=== PATIENT | male | born 1955 ===

== ENCOUNTER 2024-12-07 09:11 | Outpatient (REF) | payer BC, SELFPAY ==
[2024-12-07 11:46] LABS: Appearance Urine Clear; Color Urine Yellow; Glucose Urine UA Negative (Negative); Leukocyte Esterase Urine Trace (Negative); Nitrite Urine Negative (Negative); PH 5.5 (5.0-9.0); UMIC TRIGGER UACC YES; Urine Blood Negative (Negative); Urine Ketones Negative (Negative); Urine Protein Negative (Neg-Trace)
[2024-12-07 11:48] LABS: Bacteria Urine None Seen (None Seen); Hyaline Casts Urine 0-2 /LPF (0-2); RBC Urine 0-2 /HPF (0-2); Squamous Epithelial Cell Urine 0-2 /HPF (0-2); UACC Culture Trigger YES
== END 2024-12-07 09:12 | disposition home or self-care (01) ==
LOC: HO.LNP 09:11
PROVIDERS: PCP Physician Assistant; Visit Provider Physician Assistant
DX: Z76.89 Persons encountering health services in other specified circumstances (principal); C67.9 Malignant neoplasm of bladder, unspecified; C61 Malignant neoplasm of prostate; K59.09 Other constipation; E78.5 Hyperlipidemia, unspecified; R82.90 Unspecified abnormal findings in urine; Z13.220 Encounter for screening for lipoid disorders; K86.2 Cyst of pancreas; R91.8 Other nonspecific abnormal finding of lung field; E27.8 Other specified disorders of adrenal gland; J44.9 Chronic obstructive pulmonary disease, unspecified; F17.210 Nicotine dependence, cigarettes, uncomplicated
CPT/HCPCS: 81001; 87086; 96127; 96160

== ENCOUNTER 2024-12-07 09:11 | Outpatient (AMB) | payer BC, SELFPAY ==
--- NOTE | 2024-12-07 09:13 | MHC.PC.OV ---
Vital Signs 12/07/24 09:20 Height 5 ft 10.08 in Weight 206 lb 4 oz BMI 29.5 BP 136/72 Blood Pressure Location Rt brachial Position Sitting Respiration 14 Pulse 84 Pulse Source Pulse Oximeter Temp 98.6 F Temp Source Oral Pulse Oximetry (%) 96 Oxygen Delivery Method Room Air Intake Visit Reasons: need new pcp for medication/ pcp retired Allergies ciprofloxacin Allergy (Verified 12/07/24 09:15) weight loss Medication List - Last Reconciled 12/07/24 by Opal Alarcon PA-C albuterol sulfate 90 mcg/actuation inhalation ascorbate calcium (vitamin C) . budesonide-formoterol 160-4.5 mcg/actuation (Breyna) inhalation docusate sodium 100 mg PO BID gabapentin 300 mg PO TID multivitamin 1 tab PO DAILY omeprazole 20 mg PO DAILY Tobacco use date assessed: 12/07/24 Fall risk assessment: No Falls in past year Last assessed Fall Risk: 12/07/24 Dental Screening Dental Screen Date: 12/07/24 Did you have a dental visit in the last 12 months?: Yes Did you have a dental problem in the last 6 months where you did not have access to dental care?: No Was dental information given to patient?: Patient has dentist HPI need new pcp for medication/ pcp retired HPI Details Patient is a 69-year-old male who presents today to [facility] care. He is transferring from [facility]. 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 He used to follow with Dr. Adrian but does not want to see pulm anymore. He follows with the ldct program at [facility]. He states he just had a CT a few months ago which showed the pancreatic cysts in the the adrenal incidentaloma. He states that he will now be booked for a repeat CT next year. No recent COPD exacerbations. Continues to smoke cigarettes and not interested in quitting. CV: Blood pressure today in the office is 136/72. Saw his last PCP in August and was recommended to have a nuclear stress test given his atypical chest pain however patient tells me today that he will not be doing any stress test. He is not interested in working this up. He is aware of his risk factors and states that he does not care. He has risk factors including untreated hyperlipidemia, tobacco use and coronary artery calcifications. He was supposed to be taking Crestor but d/c'd because he states that he does not want to put any medication in him that could affect his liver as he likes to drink alcohol every night. He is not interested in any statin therapy at this point and states that he is aware of all these risks. He understands the increased risk of a heart attack, stroke and early . Uro: [facility] (Dr. Moore), states in 2014 dx with prostate then had total prostatectomy, in 2018 states he had reoccurrence, in 2020 then dx with bladder ca. He states he has multiple surgeries and radiation. He does complain today of some cloudy urine. It has been on and off for the last few days. No malorie hematuria. Denies any dysuria, fever, chills or flank pain. No abdominal pain. 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 He states that he went this morning for labs and saw [facility] endocrinology yesterday. He is very frustrated with the medical system and that people change jobs. In fact, a large part of today's discussion is how frustrated he is that he has to be here to have a PCP and change practices. He states that he is pretty much here just so he has someone on paper listed as a PCP and in case he needs any refills on the omeprazole her gabapentin that he intermittently takes. GI: He was also noted to have possible IPMN 0.5 cm in the pancreas with advised to repeat MRI without contrast in 2 years. He has chronic constipation and states that this happened starting in 2013 after he had his total prostatectomy. He was supposed to follow with GI but does not want to. Msk: has chronic back pain and uses gabapentin as needed. Psych: Does not follow with behavioral health or wish to. No SI/HI. Not on any medications. Colonoscopy: reports double endoscopy approx 2021, due in 2026, states he had polyps and severe diverticulosis. [facility] Surgical History (Updated 12/07/24 @ 08:53 by Jennifer Iglesias CMA) H/O endoscopy H/O colonoscopy Family History (Updated 12/07/24 @ 08:54 by Jennifer Iglesias CMA) Father Cancer of colon Sister Cancer Social History Housing: House Alcohol intake: current Patient Tobacco Use Status: Current everyday Tobacco user Cigarettes Per Day: 8 Years Smoked: 50 e-Cigarette/Vaping Use: Never Used Second Hand Smoke Exposure: No Substance Use Type: Marijuana service: No Current occupational status: retired Cognitive needs: No Hearing needs: No Vision needs: No Questionnaire PHQ-9 Over the last 2 weeks, how often have you been bothered by any of the following problems? 1. Little interest or pleasure in doing things: several days 2. Feeling down, depressed, or hopeless: not at all 3. Trouble falling or staying asleep, or sleeping too much: several days 4. Feeling tired or having little energy: several days 5. Poor appetite or overeating: not at all 6. Feeling bad about yourself - or that you are a failure or have let yourself or your family down: not at all 7. Trouble concentrating on things, such as reading the newspaper or watching television: not at all 8. Moving or speaking so slowly that other people could have noticed. Or the opposite - being so fidgety or restless that you have been moving around a lot more than usual: not at all 9. Thoughts that you would be better off or of hurting yourself in some way: not at all Total score: 3 Depression Screening Interpretation: Negative Depression Screening Done: Yes 07640 - PHQ-9 Billing: Yes Source: Developed by Drs. Dimitrios Steen, Shameka Swartz, Anastacio Ponce and colleagues, with an educational sumanth from [facility]. Thrive Questionnaire Date Thrive assessed: 12/07/24 I am a: Patient What is your living situation today?: I have a steady place to live THRIVE Score: 0 AUDIT C Alcohol Use Questionnaire (AUDIT-C) 2. How many drinks containing alcohol do you have on a typical day when you are drinking?: 5 or 6 Total Score: 2 ACT Questionnaire In the past 4 weeks, how much of the time did your asthma keep you from getting as much done at work, school or at home?: Some of the time During the past 4 weeks, how often have you had shortness of breath?: 1-2 times a week (only on exertion, can not say how often) During the past 4 weeks, how often did your asthma symptoms wake you up at night or earlier than usual in the morning?: Once or twice per week During the past 4 weeks, how often have you had to use your rescue inhaler or nebulizer medication?: 2-3 times a week (once a day ) How would you rate your asthma control during the past 4 weeks?: Somewhat controlled Score: 17 Physical exam (Primary Care) Depression Screening Interpretation: Negative Thrive Assessment: Date of Thrive Assessment Date Thrive assessed 12/07/24 12/07/24 09:12 Const Orientation/consciousness: patient oriented x3 HENMT Ears: hearing grossly normal bilaterally Neck Thyroid: Thyroid normal Lymphatic: no lymphadenopathy noted Resp Auscultation: clear to auscultation bilaterally Cardio Rate: regular rate Rhythm: regular rhythm Heart sounds: S1 normal heart sound present and S2 normal heart sound present GI Inspection: Yes normal to inspection Palpation (GI): Soft to palpation and Other GI palpation findings present (nontender, no cva tenderness) Auscultation: normoactive bowel sounds Rectal Exam - Male: Yes deferred Skin General skin exam: no rashes or lesions noted Neuro General: patient oriented x3, gait normal and no focal motor deficits Coding Level of Care Code New Pt Level 4 (37796) Complex EM visit Add On G2211 Diagnoses Bladder cancer C67.9 Prostate CA C61 Cloudy urine R82.90 Constipation, chronic K59.09 HLD (hyperlipidemia) E78.5 Pancreatic cyst K86.2 Lung nodules R91.8 Smoker F17.200 Adrenal incidentaloma E27.8 COPD (chronic obstructive pulmonary disease) J44.9 Additional Codes PHQ-9 - 52346 - PHQ-9 Billing: Yes ([id number]) Assessment & Plan Assessment & Plan (1) Bladder cancer: Code(s): C67.9 - Malignant neoplasm of bladder, unspecified Category: Medical Plan: Currently following with Urology. Has an appointment in 3 months. (2) Prostate CA: Code(s): C61 - Malignant neoplasm of prostate Category: Medical Plan: As above. We will get records. (3) Cloudy urine: Code(s): R82.90 - Unspecified abnormal findings in urine Category: Medical Plan: UA and culture ordered today (4) Constipation, chronic: Code(s): K59.09 - Other constipation Category: Medical Plan: He will use Colace as needed (5) HLD (hyperlipidemia): Code(s): E78.5 - Hyperlipidemia, unspecified Category: Medical Plan: Refuses any statins. Does not want me to check his labs today. (6) Pancreatic cyst: Code(s): K86.2 - Cyst of pancreas Category: Medical Plan: We will need repeat MRI of the abdomen in 2026 (7) Lung nodules: Code(s): R91.8 - Other nonspecific abnormal finding of lung field Category: Medical Plan: Following with the low-dose CAT scanning program at [facility]. (8) Smoker: Code(s): F17.200 - Nicotine dependence, unspecified, uncomplicated Category: Medical Plan: Not interested in quitting (9) Adrenal incidentaloma: Code(s): E27.8 - Other specified disorders of adrenal gland Category: Medical Plan: Saw [facility] endocrinology yesterday and had hormone labs drawn this morning. (10) COPD (chronic obstructive pulmonary disease): Code(s): J44.9 - Chronic obstructive pulmonary disease, unspecified Category: Medical Plan: Reports stable. No recent exacerbations. Orders: Orders UA CC w/rflx Micro + Cult Today C61 - Malignant neoplasm of prostate, C67.9 - Malignant neoplasm of bladder, unspecified, R82.90 - Unspecified abnormal findings in urine, Z13.220 - Encounter for screening for lipoid disorders
[2024-12-07 09:20] VITALS: BP 136/72; PULSE 84; RESP 14; TEMP 37; O2SAT 96; BMI 29.5
--- OUTSIDE RECORDS SUMMARY | 2024-12-07 09:50 | XMS_ITS | Clinical Summary ---
Author Organization [facility] Address [address] [place] [address] Care Team Providers Care [place] Actor Name Role Phone Yaw Coronado MD Primary Care Provider [phone] Allergies Active Allergy Reactions Criticality Noted Date Comments Ciprofloxacin Nausea And Vomiting Medium 03/22/2018 Nausea/emesis of bile after cipro Medications Medication Sig Dispensed Refills Start Date End Date Status Calcium Citrate-Vitamin D (CALCIUM CITRATE + D3) 200-250 MG-UNIT TABS Take 1 tablet by mouth daily. 0 Active psyllium (METAMUCIL) 0.52 g capsule Take 2 capsules by mouth daily. 0 Active docusate sodium (COLACE) 100 MG capsule Take 100 mg by mouth 2 (two) times a day. 0 Active gabapentin (NEURONTIN) 300 MG capsule Take 2 capsules (600 mg total) by mouth 2 (two) times a day. 60 capsule 1 11/14/2019 Active Sennosides (SENNA) 8.6 MG CAPS Take 1 tablet by mouth daily. 30 each 1 11/14/2019 Active lactulose (CEPHULAC) 20 GM/30ML solution Take 30 mL (20 g total) by mouth 2 (two) times a day as needed (constipation.). 240 mL 1 11/21/2019 Active albuterol (PROVENTIL HFA;VENTOLIN HFA) 108 (90 Base) MCG/ACT inhaler Inhale 2 puffs into the lungs every 6 (six) hours as needed for wheezing. 1 Inhaler 1 12/19/2019 Active budesonide-formote rol (SYMBICORT) 160-4.5 MCG/ACT inhaler Inhale 2 inhalations into the lungs 2 (two) times a day. 1 Inhaler 1 12/21/2019 Active oxybutynin (DITROPAN-XL) 5 MG 24 hr tablet TAKE 1 TABLET (5 MG TOTAL) BY MOUTH ONCE DAILY NEEDED 30 tablet 0 02/26/2020 Active Active Problems Problem Noted Date Diagnosed Date Malignant neoplasm of trigone of urinary bladder 11/14/2019 Gross hematuria 09/26/2019 Bladder tumor 09/26/2019 Prostate cancer 11/30/2017 Family History Medical History Relation Name Comments Cancer Father Cancer Mother Heart attack Mother Relation Name Status Comments Father Mother Alive Social History Tobacco Use Types Packs/Day Years Used Date Smoking Tobacco: Some Days Cigarettes 0.3 40 Smokeless Tobacco: Never Alcohol Use Standard Drinks/Week Comments No 0 (1 standard drink = 0.6 oz pur e alcohol) Sex and Gender Information Value Date Recorded Sex Assigned at Not on file Gender Identity Not on file Sexual Orientation Not on file Last Filed Vital Signs Vital Sign Reading Time Taken Comments Blood Pressure 152/78 01/30/2020 2:30 PM EDT Pulse 94 01/30/2020 2:30 PM EDT Temperature 36.4 ??C (97.6 ??F) 01/30/2020 2:30 PM ED T Respiratory Rate - - Oxygen Saturation 100% 12/12/2019 2:08 PM EDT Inhaled Oxygen Concentration - - Weight 90.2 kg (198 lb 12.8 oz) 01/30/2020 2:30 PM EDT Height 177.8 cm (5' 10 ) 01/30/2020 2:30 PM EDT Body Mass Index 28.52 01/30/2020 2:30 PM EDT Plan of Treatment Health Maintenance Due Date Last Done Comments Hepatitis C Screening 1955 COVID-19 Vaccine (#1) 12/03/1959 Pneumococcal Vaccine (1 of 2 - PCV) 1960 Depression Screening 1966 BMI Counseling 1972 Preventative Health Evaluation 1972 Tobacco Cessation Counseling 1972 DTap / Tdap / Td (1 - Tdap) 1973 Shingrix-Zoster Vaccine (1 of 2) 1973 Colon Cancer Screening (Colonoscopy) 12/03/1999 Abdominal Aortic Aneurysm (A AA) Screening 12/03/2019 Fall Risk Assessment 12/03/2019 Influenza Vaccine (Season Ended) 2025 RSV Adult > 60+ Yrs or Pregn ant (1 - 1-dose 75+ series) 2029 Hepatitis B Vaccines Aged Out No long er eligible based on patient's age to complete this topic RSV Ped < 20 months Aged Out No longe r eligible based on patient's age to complete this topic Care Teams [place] Relationship Specialty Start Date End Date Yaw Coronado MD PCP - General Internal Medicine 10/05/19
== END 2024-12-07 10:08 | disposition home or self-care (01) ==
LOC: HO.HMCFM 09:12
PROVIDERS: PCP Physician Assistant; Visit Provider Physician Assistant
DX: C67.9 Malignant neoplasm of bladder, unspecified (principal); C61 Malignant neoplasm of prostate; J44.9 Chronic obstructive pulmonary disease, unspecified; R82.90 Unspecified abnormal findings in urine; K59.09 Other constipation; E78.5 Hyperlipidemia, unspecified; K86.2 Cyst of pancreas; R91.8 Other nonspecific abnormal finding of lung field; F17.200 Nicotine dependence, unspecified, uncomplicated; E27.8 Other specified disorders of adrenal gland

== ENCOUNTER 2025-04-11 11:02 | Outpatient (AMB) | payer BC, SELFPAY ==
--- NOTE | 2025-04-11 11:05 | MHC.PC.OV ---
Vital Signs 04/11/25 11:07 Height 5 ft 10.08 in Weight 200 lb 8 oz BMI 28.7 BP 116/58 L Blood Pressure Location Rt brachial Position Sitting Respiration 14 Pulse 42 L Pulse Source Pulse Oximeter Temp 98.8 F Temp Source Oral Pulse Oximetry (%) 98 Oxygen Delivery Method Room Air Intake Visit Reasons: Surgery on 04/23 at [facility] Intake Note: Bladder biopsy. Production Tester Required: No Allergies ciprofloxacin Allergy (Verified 04/11/25 11:07) weight loss Tobacco use date assessed: 04/11/25 Fall risk assessment: No Falls in past year Last assessed Fall Risk: 04/11/25 Dental Screening Dental Screen Date: 12/07/24 HPI Surgery on 04/23 at [facility] Details Patient is a 69-year-old male who presents today for a preop. On 04/23 he is scheduled at [facility] for a bladder biopsy by Dr. Moore. This will be under sedation. . 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 He used to follow with Dr. Adrian but does not want to see pulm anymore. He follows with [place] [facility] [place]. He states he had a CT 2024 which showed the pancreatic cysts and a right adrenal incidentaloma. He states that he will now be booked for a repeat CT next year. No recent COPD exacerbations. Continues to smoke cigarettes and not interested in quitting. CV: Blood pressure today in the office is 116/58. He denies any chest pain, shortness on breath or dizziness. States that he could walk around the building or up a flight of stairs without difficulty. He often carries groceries long distances and has no issues. States that he feels healthy and fit and does not have any concerns. He has undergone this procedure many times and has never had any issues. He is aware of his risk factors and states that he does not care. He has risk factors including untreated hyperlipidemia, tobacco use and coronary artery calcifications. He was supposed to be taking Crestor but d/c'd because he states that he does not want to put any medication in him that could affect his liver as he likes to drink alcohol every night. He is not interested in any statin therapy at this point and states that he is aware of all these risks. He understands the increased risk of a heart attack, stroke and early . Uro: [facility] (Dr. [facility]), states in 2014 dx with prostate then had total prostatectomy, in 2018 states he had reoccurrence, in 2020 then dx with bladder ca. He states he has multiple surgeries and radiation. He states that he gets a biopsy every 6 months in his due for a biopsy. He states that he has never had an issue with this and has been getting them with sedation. No malorie hematuria. Denies any dysuria, fever, chills or flank pain. No abdominal pain. 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 He states that he went this morning for labs and saw [facility] endocrinology yesterday. He is very frustrated with the medical system and that people change jobs. In fact, a large part of today's discussion is how frustrated he is that he has to be here to have a PCP and change practices. He states that he is pretty much here just so he has someone on paper listed as a PCP and in case he needs any refills on the omeprazole her gabapentin that he intermittently takes. GI: He was also noted to have possible IPMN 0.5 cm in the pancreas with advised to repeat MRI without contrast in 2 years. He has chronic constipation and states that this happened starting in 2013 after he had his total prostatectomy. He was supposed to follow with GI but does not want to. Msk: has chronic back pain and uses gabapentin as needed. Psych: Does not follow with behavioral health or wish to. No SI/HI. Not on any medications. Colonoscopy: reports double endoscopy approx 2021, due in 2026, states he had polyps and severe diverticulosis. Of note, today we did have a contentious visit where he was frustrated with the healthcare system. At our last visit I spent significant time listening to his concerns about the healthcare system and today when I did suggest that I need to review his EKG with a physician he became very upset and states that he does not care about any of this. He was upset that he also was not a doctor Christy patient as his appointment got changed prior to seeing me and was upset that I was having him review his EKG. I did explain that I am not a physician. He was then yelling at me about this and about the health care system and that he went to the ER last week for tick bites and was upset that he had to wait 5 hours in the emergency room some start to finish and he was upset that he was 1 of 3 patients and that this is 1 of the big causes of collapse in the health care system . I did tell him that I did not appreciate his tone or being yelled at and neither does the staff. We discussed that if he is unable to come here and at least be respectful then he may wish to be seen by somebody else. He did ultimately apologize. PFSH Surgical History (Updated 12/07/24 @ 08:53 by Jennifer Iglesias CMA) H/O endoscopy H/O colonoscopy Family History (Updated 12/07/24 @ 08:54 by Jennifer Iglesias CMA) Father Cancer of colon Sister Cancer Social History (Updated 12/07/24 @ 09:36 by Jennifer Iglesias CMA) Housing: House Alcohol intake: current Patient Tobacco Use Status: Current everyday Tobacco user Cigarettes Per Day: 8 Years Smoked: 50 e-Cigarette/Vaping Use: Never Used Second Hand Smoke Exposure: No Substance Use Type: Marijuana service: No Current occupational status: retired Cognitive needs: No Hearing needs: No Vision needs: No Questionnaire Thrive Questionnaire Date Thrive assessed: 12/07/24 Within the past 12 months, did the food you bought not last and you didn't have the money to get more?: I choose not to answer this question Within the past 12 months, did you worry whether your food would run out before you got money to buy more?: I choose not to answer this question Do you have trouble paying for medicines?: No Do you have trouble getting transportation to medical appointments?: I choose not to answer this question Do you have trouble paying your heating and electricity bill?: No Do you have trouble taking care of your child, family member or friend?: No Do you have trouble with day-to-day activities such as bathing, preparing meals, shopping, managing finances, etc.?: I choose not to answer this question Are you currently unemployed and looking for a job?: No Are you interested in more education?: No Please select the resources that you would like help with: None Currently or been in a relationship where the following occur: No concerns reported THRIVE Score: 0 AUDIT C Alcohol Use Questionnaire (AUDIT-C) 1. How often do you have a drink containing alcohol?: Never 3. How often do you have six or more drinks on one occasion?: Never Total Score: 0 DESIREE-7 AMB Questionnaire DESIREE-7 Feeling nervous, anxious, or on edge: 0 = Not at all Not being able to stop or control worryin = Not at all Worrying too much about different things: 0 = Not at all Trouble relaxin = Not at all Being so restless that it is hard to sit still: 0 = Not at all Becoming easily annoyed or irritable: 0 = Not at all Feeling afraid as if something awful might happen: 0 = Not at all Total DESIREE-7 score (0-4 normal; 5-9 mild; 10-14 moderate; 15-21 severe): 0 Source: Developed by Drs. Dimitrios Steen, Shameka Swartz, Anastacio Ponce and colleagues, with an educational sumanth from [employer]. Physical exam (Primary Care) Vital Signs: Last Vital Signs Temp 98.8 F 04/11/25 11:07 Pulse 42 L 04/11/25 11:07 Resp 14 04/11/25 11:07 BP 116/58 L 04/11/25 11:07 Pulse Ox 98 04/11/25 11:07 Oxygen Delivery Method Room Air 04/11/25 11:07 BMI result Body Mass Index 28.7 Tobacco/Smoking Status: Tobacco use Status Tobacco use date assessed 04/11/25 04/11/25 11:08 Patient Tobacco Use Status Current everyday Tobacco 04/11/25 11:08 e-Cigarette/Vaping Use Never Used 04/11/25 11:08 Thrive Assessment: Date of Thrive Assessment Date Thrive assessed 12/07/24 04/11/25 11:08 Currently or been in a relationship where the following occur: No concerns reported Const Orientation/consciousness: patient oriented x3 HENMT Ears: hearing grossly normal bilaterally Neck Thyroid: Thyroid normal Lymphatic: no lymphadenopathy noted Resp Auscultation: clear to auscultation bilaterally Cardio Rate: regular rate Rhythm: regular rhythm Heart sounds: S1 normal heart sound present and S2 normal heart sound present GI Inspection: Yes normal to inspection Palpation (GI): Soft to palpation and Other GI palpation findings present (nontender, no cva tenderness) Auscultation: normoactive bowel sounds Rectal Exam - Male: Yes deferred Skin General skin exam: no rashes or lesions noted Neuro General: patient oriented x3, gait normal and no focal motor deficits Office Procedures EKG Details: EKG today in office is normal sinus rhythm with PAC noted and right bundle-branch block. EKG interpreted myself, Dr. Woodson and Dr. Harrison. Dr. Woodson and myself compared the previous EKG from [facility] and no significant change. [id number], Complete Results Reviewed Results Reviewed: Laboratory Tests 04/11/25 11:47 WBC 9.3 RBC 5.51 Hgb 16.2 Hct 51.3 Plt Count 331 Sodium 140 Potassium 5.2 H Chloride 105 Carbon Dioxide 29 Anion Gap 11 L BUN 14 Creatinine 1.01 Estimated GFR > 60 Random Glucose 104 Calcium 9.8 Total Bilirubin 0.7 AST 32 ALT 37 Alkaline Phosphatase 64 Total Protein 7.2 Albumin 4.6 Triglycerides 68 Cholesterol 167 LDL Cholesterol, Calc 116 H HDL Cholesterol 38 L TSH 0.84 Lyme Screen IgG & IgM <0.90 Coding Level of Care Code Est Pt Level 4 (39143) Complex EM visit Add On G2211 Diagnoses Pre-op exam Z01.818 Bladder cancer C67.9 HLD (hyperlipidemia) E78.5 COPD (chronic obstructive pulmonary disease) J44.9 Tick bite W57.XXXA CPT Codes EKG - CPT: 56816-[id number], Complete ([id number]) Assessment & Plan Assessment & Plan (1) Pre-op exam: Code(s): Z01.818 - Encounter for other preprocedural examination Category: Medical Plan: Patient is average risk for a low risk procedure. He is cleared for bladder biopsy Labs ordered today and reviewed. Potassium was mildly elevated. We will plan to repeat this this week. (2) Bladder cancer: Code(s): C67.9 - Malignant neoplasm of bladder, unspecified Category: Medical Plan: Continue following with Dr. Moore (3) HLD (hyperlipidemia): Code(s): E78.5 - Hyperlipidemia, unspecified Category: Medical Plan: We will check lipids (4) COPD (chronic obstructive pulmonary disease): Code(s): J44.9 - Chronic obstructive pulmonary disease, unspecified Category: Medical Plan: Stable. No exacerbations within the last year. (5) Tick bite: Code(s): W57.XXXA - Bitten or stung by nonvenomous insect and other nonvenomous arthropods, initial encounter Category: Medical Plan: We will check Lyme testing Orders: Orders Lipid Panel 04/11/25 C67.9 - Malignant neoplasm of bladder, unspecified, E78.5 - Hyperlipidemia, unspecified, J44.9 - Chronic obstructive pulmonary disease, unspecified, Z01.818 - Encounter for other preprocedural examination TSH reflex Free T4 04/11/25 C67.9 - Malignant neoplasm of bladder, unspecified, E78.5 - Hyperlipidemia, unspecified, J44.9 - Chronic obstructive pulmonary disease, unspecified, Z01.818 - Encounter for other preprocedural examination Lyme IgG/IgM w/reflex to WB 04/11/25 W57.XXXA - Bitten or stung by nonvenomous insect and other nonvenomous arthropods, initial encounter Comprehensive Met. Panel 04/11/25 C67.9 - Malignant neoplasm of bladder, unspecified, E78.5 - Hyperlipidemia, unspecified, J44.9 - Chronic obstructive pulmonary disease, unspecified, Z01.818 - Encounter for other preprocedural examination Complete Blood Count Auto Diff 04/11/25 C67.9 - Malignant neoplasm of bladder, unspecified, E78.5 - Hyperlipidemia, unspecified, J44.9 - Chronic obstructive pulmonary disease, unspecified, Z01.818 - Encounter for other preprocedural examination Medications: New doxycycline hyclate 200 mg (2 x 100 mg) PO ONCE 2 caps 0RF
[2025-04-11 11:07] VITALS: BP 116/58; PULSE 42; RESP 14; TEMP 37.1; O2SAT 98; BMI 28.7
--- OUTSIDE RECORDS SUMMARY | 2025-04-11 13:38 | XMS_ITS | Clinical Summary ---
Author Organization [facility] Address [address] [place] [address] Care Team Providers Care Piecer Name Role Phone Yaw Coronado MD Primary Care Provider [phone] Allergies Active Allergy Reactions Criticality Noted Date [...] 94 01/30/2020 2:30 PM EDT Temperature 36.4 C (97.6 F) 01/30/2020 2:30 PM EDT Respiratory Rate - - Oxygen Saturation 100% [...] 12/03/2019 Fall Risk Assessment 12/03/2019 Influenza Vaccine (#1) 2025 RSV Adult > 60+ Yrs or Pregn ant (1 - 1-dose 75+ series) 2029 Hepatitis B Vaccines Aged Out No long er eligible based on patient's age to complete this topic RSV Ped < 20 months Aged Out No longe r eligible based on patient's age to complete this topic Care Teams Piecer Relationship Specialty Start Date End Date Yaw Coronado MD PCP - General Internal Medicine 10/05/19
--- OUTSIDE RECORDS SUMMARY | 2025-04-11 13:38 | XMS_ITS | Encounter Summary ---
Author Organization [facility] Address [address] [place] [address] [place] [address] Phone Care Team Providers Care Cardiac Tech Name Role Phone Yaw Coronado MD Primary Care Provider + Encounter Details Date Type Department Care Team (Late st Contact Info) Description 02/13/2020 Procedure Pass OR Admitting Dept - Virtual Department [address] [place] [address] Social History Tobacco Use Types Packs/Day Years Used Date Smoking Tobacco: Every Day Cigarettes 0.3 30 Smokeless Tobacco: Never Alcohol Use Standard Drinks/Week Comments Yes 4 (1 standard drink = 0.6 oz pur e alcohol) 1-2 times a week Sex and Gender Information Value Date Recorded Sex Assigned at Not on file Legal Sex Male 9:56 PM EDT Gender Identity Not on file Sexual Orientation Not on file documented as of this encounter Plan of Treatment Upcoming Encounters Date Type Department Care Team (Latest Contact Info) Description 04/20/2025 8:30 AM EDT Pre-Admission Testing Pre Procedure Evaluation [address] [place] [address] Clem Moore MD [facility], [address] [address] 04/23/2025 Procedure Pass OR Admitting Dept - Virtual Department [address] [place] [address] 04/23/2025 8:47 AM EDT Hospital Encounter OR Admitting Dept - Virtual Department [address] [place] [address] Clem Moore MD [address] [place] [address], [address] [place] [address] 04/23/2025 8:47 AM EDT - 04/23/2025 10:07 AM EDT Surgery OR Admitting Dept - Virtual Department [address] [place] [address] Clem Moore MD [address] [place] [address], [address] [place] [address] [email or web address] CYSTOSCOPY, POSSIBLE FULGURATION BIOPSY BLADDER Scheduled Procedures Name Priority Associated Diagnoses Date/Ti ca CYSTOSCOPY FULGURATION BIOPSY BLADDER hx of bladder cancer, anxiety 04/23/2025 8:47 AM EDT documented as of this encounter Visit Diagnoses Not on filedocumented in this encounter Care Teams Cardiac Tech Relationship Specialty Start Date End Date Yaw Coronado MD [address] [place] [address] PCP - General Internal Medicine 11/17/17 documented as of this encounter Additional Source Comments The information contained in this document represents components of the legal health record. It is not the complete legal health record.[facility]
--- OUTSIDE RECORDS SUMMARY | 2025-04-11 13:38 | XMS_ITS | Encounter Summary ---
Author Organization [facility] Address [address] [facility] [address] [place] [address] Phone Care Team Providers Care Communications Marketing Intern Name Role Phone Yaw Coronado MD Primary Care Provider + Encounter Details Date Type Department Care Team (Latest Contact Info) Description 02/10/2018 Transcribe Orders [facility] [address] [facility] [address] [place] [address] Dayana Morales PA-C [address] [place] [address] Constipation, unspecified constipation type (Primary Dx) Social History Tobacco Use Types Packs/Day Years [...] AM EDT Pre-Admission Testing Pre Procedure Evaluation [address] [place] [address] Clem Moore MD [address] [facility], [address] [address] 04/23/2025 Procedure Pass OR Admitting Dept - Virtual Department [address] [place] [address] 04/23/2025 8:47 AM EDT Hospital Encounter OR Admitting Dept - Virtual Department [address] [place] [address] Clem Moore MD [address] [facility], [address] [place] [address] 04/23/2025 8:47 AM EDT - 04/23/2025 10:07 AM EDT Surgery OR Admitting Dept - Virtual Department [address] [place] [address] Clem Moore MD [address] [place] [address], [address] [place] [address] [email or web address] CYSTOSCOPY, POSSIBLE FULGURATION BIOPSY BLADDER Scheduled Procedures Name Priority Associated Diagnoses Date/Ti in CYSTOSCOPY FULGURATION BIOPSY BLADDER hx of bladder cancer, anxiety 04/23/2025 8:47 AM EDT documented as of this encounter Results * H. pylori antigen, stool (02/18/2018 3:59 PM EDT) Pathologist [facility] H.PYLORI [employer] Negative Negative [facility] DPT OF LAB MED AND PAT+ Stool (Stool) 02/18/2018 3:5 9 PM EDT 02/18/2018 4:05 PM EDT us Dayana Morales PA-C BODY FLUIDS AND STOOLS ORDERABL ES Final Result [facility] DPT OF LAB MED AND PAT+ [address] [place] [address] * Fecal occult blood, multiple (02/18/2018 3:59 PM EDT) Pathologist [facility] FECAL OCC BLD 1 DATE 82,418 [facility] Occult bld, stool, #1 Negative Negative [facility] FECAL OCC BLD 2 DATE 82,418 [facility] OCCULT BLD, STOOL, #2 Negative Negative [facility] FECAL OCC BLD 3 DATE 82,418 [facility] FECAL OCC BLD 3 RSLT Negative Negative [facility] Stool (Stool) 02/18/2018 3:5 9 PM EDT 02/18/2018 4:05 PM EDT us Dayana Morales PA-C BODY FLUIDS AND STOOLS ORDERABL ES Final Result Performing Organization Address [facility] Co de Phone Number [address] [address] * TSH (02/10/2018 9:31 AM EDT) TSH 1.34 0.27 - 4.20 uIU/mL [facility] Blood 02/10/2018 9:31 AM EDT 02/10/2018 9:38 AM EDT us Dayana Morales PA-C LAB BLOOD ORDERABLES Final Resu lt Performing Organization Address [facility] Co de Phone Number [address] [address] * Immunoglobulin A (02/10/2018 9:31 AM EDT) IgA 177 70 - 400 mg/dL [facility] Blood 02/10/2018 9:31 AM EDT 02/10/2018 9:38 AM EDT us Dayana Morales PA-C LAB BLOOD ORDERABLES Final Resu lt Performing Organization Address [facility] Co de Phone Number [address] [address] * Tissue transglutaminase IgA (02/10/2018 9:31 AM EDT) TTG IGA ANTIBODY <1.2 <4.0 (Negative) U/mL [facility] DPT OF LAB MED AND PAT+ Blood 02/10/2018 9:31 AM EDT 02/10/2018 9:38 AM EDT us Dayana Morales PA-C LAB BLOOD ORDERABLES Final Resu lt [facility] DPT OF LAB MED AND PAT+ [address] [place] [address] documented in this encounter Visit Diagnoses Diagnosis Constipation, unspecified constipation type- Primary documented in this encounter Additional Health Concerns Infection Onset Date Last Indicated Resolved Time CoV-Risk 10/28/2019 10/28/2019 11/11/2019 1:24 AM EDT documented as of this encounter Care Teams Communications Marketing Intern Relationship Specialty Start Date End Date Yaw Coronado MD [address] [place] [address] PCP - General Internal Medicine 11/17/17 documented as of this encounter Additional Source Comments The information contained in this document represents components of the legal health record. It is not the complete legal health record.[facility]
--- OUTSIDE RECORDS SUMMARY | 2025-04-11 13:39 | XMS_ITS | Encounter Summary ---
Author Organization [facility] Address [address] [facility] [address] [place] [address] Phone Care Team Providers Care Eye Dropper Assembler Name Role Phone Yaw Coronado MD Primary Care Provider + Encounter Details Date Type Department Care Team (Late st Contact Info) Description 10/09/2024 Procedure Pass OR Admitting Dept - Virtual Department [address] [place] [address] Social History Tobacco Use Types Packs/Day Years Used Date Smoking Tobacco: Every Day Cigarettes 0.3 30 Smokeless Tobacco: Never Alcohol Use Standard Drinks/Week Comments Yes 28 (1 standard drink = 0.6 oz pu re alcohol) Education Answer Date Recorded Are you interested in more education? Not on angelika e 10/23/2022 Are you concerned about learning? Not on file 10/23/2022 No 10/23/2022 No 10/23/2022 Digital Access Answer Date Recorded No 11/18/2022 No 11/18/2022 Reliable internet access at home? Not on file 11/18/2022 Device with a working camera? Not on file Sex and Gender Information Value Date Recorded Sex Assigned at Not on file Legal Sex Male 9:56 PM EDT Gender Identity Not on file Sexual Orientation Not on file documented as of this encounter Plan of Treatment Upcoming Encounters Date Type Department Care Team (Latest Contact Info) Description 04/20/2025 8:30 AM EDT Pre-Admission Testing Pre Procedure Evaluation [address] [place] [address] Clem Moore MD [address] [place] [address], [address] [address] [email or web address] 04/23/2025 Procedure Pass OR Admitting Dept - Virtual Department [address] [place] [address] 04/23/2025 8:47 AM EDT Hospital Encounter OR Admitting Dept - Virtual Department [address] [place] [address] Clem Moore MD [address] [place] [address], [address] [place] [address] [email or web address] 04/23/2025 8:47 AM EDT - 04/23/2025 10:07 AM EDT Surgery OR Admitting Dept - Virtual Department [address] [place] [address] Clem Moore MD [address] [place] [address], [address] [place] [address] CYSTOSCOPY, POSSIBLE FULGURATION BIOPSY BLADDER Scheduled Procedures Name Priority Associated Diagnoses Date/Ti in CYSTOSCOPY FULGURATION BIOPSY BLADDER hx of bladder cancer, anxiety 04/23/2025 8:47 AM EDT documented as of this encounter Visit Diagnoses Not on filedocumented in this encounter Care Teams Eye Dropper Assembler Relationship Specialty Start Date End Date Yaw Coronado MD [address] [place] [address] PCP - General Internal Medicine 11/17/17 documented as of this encounter Additional Source Comments The information contained in this document represents components of the legal health record. It is not the complete legal health record.[facility]
--- OUTSIDE RECORDS SUMMARY | 2025-04-11 13:39 | XMS_ITS | Encounter Summary ---
Author Organization [facility] Address [address] [facility] [address] [place] [address] Phone Care Team Providers Care Reinstatement Clerk Name Role Phone Yaw Coronado MD Primary Care Provider + Encounter Details Date Type Department Care Team ( Contact Info) Description 12/01/2022 Procedure Pass OR Admitting Dept - Virtual Department [address] [place] [address] Social History Tobacco Use Types Packs/Day Years Used Date Smoking Tobacco: Every Day Cigarettes 0.3 30 Smokeless Tobacco: Never Alcohol Use Standard Drinks/Week Comments Yes 8 (1 standard drink = 0.6 oz pur e alcohol) Education Answer Date Recorded Are you [...] EDT Pre-Admission Testing Pre Procedure Evaluation [address] [place] [address] Clem Moore MD [address] [place] [address], [address] [address] 04/23/2025 Procedure Pass OR Admitting Dept - Virtual Department [address] [place] [address] 04/23/2025 8:47 AM EDT Hospital Encounter OR Admitting Dept - Virtual Department [address] [place] [address] Clem Moore MD [address] [place] [address], [address] [place] [address] 04/23/2025 8:47 AM EDT - 04/23/2025 10:07 AM EDT Surgery OR Admitting Dept - Virtual Department [address] [place] [address] Clem Moore MD [address] [place] [address], [address] [place] [address] CYSTOSCOPY, POSSIBLE FULGURATION BIOPSY BLADDER Scheduled Procedures Name Priority Associated Diagnoses Date/Ti mo CYSTOSCOPY FULGURATION BIOPSY BLADDER hx of bladder cancer, anxiety 04/23/2025 8:47 AM EDT documented as of this encounter Visit Diagnoses Not on filedocumented in this encounter Care Teams Reinstatement Clerk Relationship Specialty Start Date End Date Yaw Coronado MD [address] [place] [address] PCP - General Internal Medicine 11/17/17 documented as of this encounter Additional Source Comments The information contained in this document represents components of the legal health record. It is not the complete legal health record.[facility]
--- OUTSIDE RECORDS SUMMARY | 2025-04-11 13:39 | XMS_ITS | Encounter Summary ---
Author Organization [facility] Address [facility] [employer] [facility] [address] [place] [address] Phone Care Team Providers Care Canvass Manager Name Role Phone Yaw Coronado MD Primary Care Provider + Reason for Referral * - Closed Specialty Diagnoses / Procedures Referred By Contac t Referred To Contact Diagnoses Rising PSA following treatment for malignant neoplasm of prostate Procedures CT Pelvis Clem Moore MD Phone: tel: fax: [email or web address] Referral ID Status Reason Start Date Expiration Date Visits Re quested Visits Authorized [id number] Closed 11/25/2017 11/25/2018 1 1 Encounter Details Date Type Department Care Team (Late st Contact Info) Description 11/17/2017 Ancillary Orders [facility] Department [address] [place] [address] Clem Moore MD [address] [place] [address], [address] [address] [email or web address] Rising PSA following treatment for malignant neoplasm of prostate Social History Tobacco Use Types Packs/Day Years Used Date Smoking Tobacco: Never Assessed Sex and Gender Information Value Date Recorded Sex Assigned at Not on file Legal Sex Male 9:56 PM EDT Gender Identity Not on file Sexual Orientation Not on file documented as of this encounter Plan of Treatment Upcoming Encounters Date Type Department Care Team (Latest Contact Info) Description 04/20/2025 8:30 AM EDT Pre-Admission Testing Pre Procedure Evaluation [address] [place] [address] Clem Moore MD [address] [place] [address], [address] [place] [address] [email or web address] 04/23/2025 Procedure Pass OR Admitting Dept - Virtual Department [address] [place] [address] 04/23/2025 8:47 AM EDT Hospital Encounter OR Admitting Dept - Virtual Department [address] [place] [address] Clem Moore MD [address] [place] [address], [address] [place] [address] [email or web address] 04/23/2025 8:47 AM EDT - 04/23/2025 10:07 AM EDT Surgery OR Admitting Dept - Virtual Department [address] [place] [address] Clem Moore MD [address] [place] [address], [address] [place] [address] [email or web address] CYSTOSCOPY, POSSIBLE FULGURATION BIOPSY BLADDER Scheduled Procedures Name Priority Associated Diagnoses Date/Ti ar CYSTOSCOPY FULGURATION BIOPSY BLADDER hx of bladder cancer, anxiety 04/23/2025 8:47 AM EDT documented as of this encounter Results * NM Bone Scan Whole Body (11/29/2017 1:26 PM EDT) Anatomical Region Laterality Modality Shoulder Right, Shoulder Lef t, Arm Left, Arm Right, Elbow Left, Elbow Right, Forearm Left, Forearm Right, Wrist Right, Wrist Left, Hand Left, Hand Right, Hip Left, Hip Right, Hip Bilateral, Thigh Left, Thigh Right, Knee Left, Knee Right, Knee Bilateral, Leg Left, Leg Right, Ankle Left, Ankle Right, Foot Left, Foot Right, Pelvis Nucle ar Medicine 11/29/2017 5:24 PM EDT Impressions 11/29/2017 5:44 PM EDT No scintigraphic findings suspicious for malignancy. POS [id number] Edited by: Mary Beth Mendoza on 11/29/2017 5:44 PM Narrative 11/29/2017 5:44 PM EDT HISTORY: History of prostate cancer now with rising PSA. TECHNIQUE: 25.7 mCi of technetium-99m medronate labeled MDP was administered intravenously and delayed whole-body imaging obtained at three hours. COMPARISON: None. CORRELATION: CT pelvis 11/29/2017. FINDINGS: Nonspecific diffuse uptake within the maxilla in a symmetric pattern could be related to dental disease or malocclusion of potential dentures. Focal areas of uptake in the lower cervical spine, left AC joint, and bilateral sternoclavicular joints are likely on a degenerative basis. Small areas of uptake in the lower lumbar spine along the left side and involving the lower left sacroiliac joint correspond with degenerative changes on CT. Intense focal uptake within the lateral right ankle could be posttraumatic or degenerative. Minimal uptake in the knees, ankles, and mid foot bilaterally are likely degenerative. There are two functioning kidneys. Procedure Note Lana Akers MD - 11/29/2017 HISTORY: History of prostate cancer now with rising PSA. TECHNIQUE: 25.7 mCi of technetium-99m medronate labeled MDP wasadministered intravenously and delayed whole-body imaging obtained atthree hours. COMPARISON: None. CORRELATION: CT pelvis 11/29/2017. FINDINGS: Nonspecific diffuse uptake within the maxilla in a symmetric pattern couldbe related to dental disease or malocclusion of potential dentures. Focalareas of uptake in the lower cervical spine, left AC joint, and bilateralsternoclavicular joints are likely on a degenerative basis. Small areasof uptake in the lower lumbar spine along the left side and involving thelower left sacroiliac joint correspond with degenerative changes on CT.Intense focal uptake within the lateral right ankle could be posttraumaticor degenerative. Minimal uptake in the knees, ankles, and mid footbilaterally are likely degenerative. There are two functioning kidneys. IMPRESSION: No scintigraphic findings suspicious for malignancy. POS [id number] Edited by: Mary Beth Mendoza on 11/29/2017 5:44 PM us Clem Moore MD IM NM BONE SCAN Final Result * CT PELVIS (SOFT TISSUE) WITH CONTRAST (11/29/2017 12:13 PM EDT) Anatomical Region Laterality Modality Pelvis Computed Tomogra phy 11/29/2017 1:14 PM EDT Impressions 11/29/2017 5:47 PM EDT Asymmetric borderline enlargement of a right inguinal lymph node. Status post prostatectomy without evidence of tumor recurrence in the surgical bed. No suspicious bone lesion. TOTAL CTDIvol: 10.50 mGy POS - [email or web address] Edited by: Sally Lugo on 11/29/2017 1:54 PM Narrative 11/29/2017 5:47 PM EDT COMPARISON: None TECHNIQUE: CT of the pelvis with IV and oral contrast. Multiplanar reformatted images generated. Automated exposure control utilized. FINDINGS: Bladder: Decompressed and unable to be adequately evaluated. Reproductive: Prostate gland and seminal vesicles are surgically absent. No evidence of a mass in the surgical bed. Bowel: Large amount of stool in the partially imaged right colon. Appendix is normal. Nonobstructed pattern. Moderate sigmoid diverticulosis. Peritoneum: No free fluid or organized collections. Lymph nodes: Asymmetric borderline enlargement of a right upper inguinal lymph node measuring 1.0 cm. Multiple additional inguinal lymph nodes which measure subcentimeter in short axis Body wall: Small fat filled left inguinal ring. Bones: No compression deformities. Moderate disc space narrowing at L34 and L4-5 with degenerative endplate spondylosis. Mild facet arthropathy in the lower spine. Bridging osteophytic changes across the left sacroiliac joint. Mild degenerative changes in the hips. No destructive bone lesion. Procedure Note Lana Akers MD - 11/29/2017 COMPARISON: None TECHNIQUE: CT of the pelvis with IV and oral contrast. Multiplanarreformatted images generated. Automated exposure control utilized. FINDINGS: Bladder: Decompressed and unable to be adequately evaluated. Reproductive: Prostate gland and seminal vesicles are surgically absent.No evidence of a mass in the surgical bed. Bowel: Large amount of stool in the partially imaged right colon.Appendix is normal. Nonobstructed pattern. Moderate sigmoiddiverticulosis. Peritoneum: No free fluid or organized collections. Lymph nodes: Asymmetric borderline enlargement of a right upper inguinallymph node measuring 1.0 cm. Multiple additional inguinal lymph nodeswhich measure subcentimeter in short axis Body wall: Small fat filled left inguinal ring. Bones: No compression deformities. Moderate disc space narrowing at L34and L4-5 with degenerative endplate spondylosis. Mild facet arthropathyin the lower spine. Bridging osteophytic changes across the leftsacroiliac joint. Mild degenerative changes in the hips. No destructivebone lesion. IMPRESSION: Asymmetric borderline enlargement of a right inguinal lymph node. Status post prostatectomy without evidence of tumor recurrence in thesurgical bed. No suspicious bone lesion. TOTAL CTDIvol: 10.50 mGy POS - [email or web address] Edited by: Sally Lugo on 11/29/2017 1:54 PM Clem Moore MD IMG CT XSPECIALTY ORDERABLES F inal Result documented in this encounter Visit Diagnoses Diagnosis Rising PSA following treatment for malignant neoplasm of prostate Rising PSA following treatment for malignant neoplasm of prostate Rising PSA following treatment for malignant neoplasm of prostate documented in this encounter Additional Health Concerns Infection Onset Date Last Indicated Resolved Time CoV-Risk 10/28/2019 10/28/2019 11/11/2019 1:24 AM EDT documented as of this encounter Care Teams Canvass Manager Relationship Specialty Start Date End Date Yaw Coronado MD [address] [place] [address] PCP - General Internal Medicine 11/17/17 documented as of this encounter Additional Source Comments The information contained in this document represents components of the legal health record. It is not the complete legal health record.[facility]
--- OUTSIDE RECORDS SUMMARY | 2025-04-11 13:39 | XMS_ITS | Encounter Summary ---
Author Organization [facility] Address [address] [employer] [facility] [address] [place] [address] Phone Care Team Providers Care Signal Helper Name Role Phone Yaw Coronado MD Primary Care Provider + Encounter Details Date Type Department Care Team (Latest Contact Info) Description 11/24/2017 Transcribe Orders [facility] [address] [place] [address] Clem Moore MD [address] [place] [address], [address] [address] Rising PSA following treatment for malignant neoplasm of prostate (Primary Dx) Social History Tobacco Use Types [...] EDT Pre-Admission Testing Pre Procedure Evaluation [address] [place] [address] Clem Moore MD [address] [place] [address], [address] [address] 04/23/2025 Procedure Pass OR Admitting Dept - Virtual Department [address] [place] [address] 04/23/2025 8:47 AM EDT Hospital Encounter OR Admitting Dept - Virtual Department [address] [place] [address] Clem Moore MD [address] [place] [address], [address] [place] [address] [email or web address] 04/23/2025 8:47 AM EDT - 04/23/2025 10:07 AM EDT Surgery OR Admitting Dept - Virtual Department [address] [place] [address] Clem Moore MD [address] [place] [address], [address] [place] [address] [email or web address] CYSTOSCOPY, POSSIBLE FULGURATION BIOPSY BLADDER Scheduled Procedures Name Priority Associated Diagnoses Date/Ti me CYSTOSCOPY FULGURATION BIOPSY BLADDER hx of bladder cancer, anxiety 04/23/2025 8:47 AM EDT documented as of this encounter Results * Creatinine/eGFR (11/24/2017 3:36 PM EDT) CREATININE 1.00 0.5 - 1.5 mg/dL [facility] EGFR 80 >59 mL/min/1.7 3m2 [facility] Comment:If patient is black, multiply result by 1.159. The eGFR calculation has changed from the MDRD equation to the CKD-EPI equation as of August 31, 2017. Blood 11/24/2017 3:36 PM EDT 11/24/2017 3:40 PM EDT us Clem Moore MD LAB BLOOD ORDERABLES Final Res ult [address] [address] * (ABNORMAL) BUN (11/24/2017 3:36 PM EDT) BUN 20(H) 6 - 19 mg/dL [facility] Blood 11/24/2017 3:36 PM EDT 11/24/2017 3:40 PM EDT us Clem Moore MD LAB BLOOD ORDERABLES Final Res ult Performing Organization Address City/[facility]/ZIP Co de Phone Number [address] [address] * PSA (screening) (11/24/2017 3:36 PM EDT) PSA 0.23 0 - 4.00 ng/mL [facility] Blood 11/24/2017 3:36 PM EDT 11/24/2017 3:40 PM EDT Clem Moore MD LAB BLOOD ORDERABLES Final Res ult Performing Organization Address [facility] de Phone Number [address] [address] documented in this encounter Visit Diagnoses Diagnosis Rising PSA following treatment for malignant neoplasm of prostate- Primary documented in this encounter Additional Health Concerns Infection Onset Date Last Indicated Resolved Time CoV-Risk 10/28/2019 10/28/2019 11/11/2019 1:24 AM EDT documented as of this encounter Care Teams Signal Helper Relationship Specialty Start Date End Date Yaw Coronado MD [address] [place] [address] PCP - General Internal Medicine 11/17/17 documented as of this encounter Additional Source Comments The information contained in this document represents components of the legal health record. It is not the complete legal health record.[facility]
--- OUTSIDE RECORDS SUMMARY | 2025-04-11 13:39 | XMS_ITS | Encounter Summary ---
Author Organization [facility] Address [address] [place] [address] [place] [address] Phone Care Team Providers Care Campus Manager Name Role Phone Yaw Coronado MD Primary Care Provider + Encounter Details Date Type Department Care Team (Late st Contact Info) Description 09/26/2019 Procedure Pass OR Admitting Dept - Virtual Department [address] [place] [address] Social History Tobacco Use Types Packs/Day Years [...] AM EDT Pre-Admission Testing Pre Procedure Evaluation [address] [place] [address] Clem Moore MD [facility], [address] [address] 04/23/2025 Procedure Pass OR Admitting Dept - Virtual Department [address] [place] [address] 04/23/2025 8:47 AM EDT Hospital Encounter OR Admitting Dept - Virtual Department [address] [place] [address] [place] [address] [place] [address], [address] [place] [address] 04/23/2025 8:47 AM EDT - 04/23/2025 10:07 AM EDT Surgery OR Admitting Dept - Virtual Department [address] [place] [address] Clem Moore MD [address] [place] [address], [address] [place] [address] [email or web address] CYSTOSCOPY, POSSIBLE FULGURATION BIOPSY BLADDER Scheduled Procedures Name Priority Associated Diagnoses Date/Ti ri CYSTOSCOPY FULGURATION BIOPSY BLADDER hx of bladder cancer, anxiety 04/23/2025 8:47 AM EDT documented as of this encounter Visit Diagnoses Not on filedocumented in this encounter Additional Health Concerns Infection Onset Date Last Indicated Resolved Time CoV-Risk 10/28/2019 10/28/2019 11/11/2019 1:24 AM EDT documented as of this encounter Care Teams Campus Manager Relationship Specialty Start Date End Date Yaw Coronado MD [address] [place] [address] PCP - General Internal Medicine 11/17/17 documented as of this encounter Additional Source Comments The information contained in this document represents components of the legal health record. It is not the complete legal health record.[facility]
--- OUTSIDE RECORDS SUMMARY | 2025-04-11 13:39 | XMS_ITS | Encounter Summary ---
Author Organization [facility] Address [address] [facility] [address] [place] [address] Phone Care Team Providers Care Item Repair Manager Name Role Phone Yaw Coronado MD Primary Care Provider + Encounter Details Date Type Department Care Team ( Contact Info) Description 06/01/2023 Procedure Pass OR Admitting Dept - Virtual Department [address] [place] [address] Social History Tobacco Use Types Packs/Day Years [...] EDT Pre-Admission Testing Pre Procedure Evaluation [address] [place] [address] Clem Moore MD [address] [place] [address], [address] [address] [email or web address] 04/23/2025 Procedure Pass OR Admitting Dept - Virtual Department [address] [place] [address] 04/23/2025 8:47 AM EDT Hospital Encounter OR Admitting Dept - Virtual Department [address] [place] [address] Clem Moore MD [address] [place] [address], [address] [place] [address] [email or web address] 04/23/2025 8:47 AM EDT - 04/23/2025 10:07 AM EDT Surgery OR Admitting Dept - Virtual Department [address] [place] [address] Clem Moore MD [address] [place] [address], [address] [place] [address] CYSTOSCOPY, POSSIBLE FULGURATION BIOPSY BLADDER Scheduled Procedures Name Priority Associated Diagnoses Date/Ti ky CYSTOSCOPY FULGURATION BIOPSY BLADDER hx of bladder cancer, anxiety 04/23/2025 8:47 AM EDT documented as of this encounter Visit Diagnoses Not on filedocumented in this encounter Care Teams Item Repair Manager Relationship Specialty Start Date End Date Yaw Coronado MD [address] [place] [address] PCP - General Internal Medicine 11/17/17 documented as of this encounter Additional Source Comments The information contained in this document represents components of the legal health record. It is not the complete legal health record.[facility]
--- OUTSIDE RECORDS SUMMARY | 2025-04-11 13:39 | XMS_ITS | Encounter Summary ---
Author Organization [facility] Address [address] [place] [address] [place] [address] Phone Care Team Providers Care Flat Screen Worker Name Role Phone Yaw Coronado MD Primary Care Provider + Encounter Details Date Type Department Care Team (Late st Contact Info) Description 11/17/2017 Procedure Pass [facility], Ct Scan - [address] [address] Social History Tobacco Use Types Packs/Day Years [...] AM EDT Pre-Admission Testing Pre Procedure Evaluation [address] [place] [address] Clem Moore MD [address] [place] [address], [address] [address] [email or web address] 04/23/2025 Procedure Pass OR Admitting Dept - Virtual Department [address] [place] [address] 04/23/2025 8:47 AM EDT Hospital Encounter OR Admitting Dept - Virtual Department [address] [place] [address] Clem Moore MD [address] [place] [address], [address] [place] [address] [email or web address] 04/23/2025 8:47 AM EDT - 04/23/2025 10:07 AM EDT Surgery OR Admitting Dept - [facility] Department [address] [place] [address] Clem Moore MD [address] [facility], [address] [place] [address] [email or web address] CYSTOSCOPY, POSSIBLE FULGURATION BIOPSY BLADDER Scheduled Procedures Name Priority Associated Diagnoses Date/Ti me CYSTOSCOPY FULGURATION BIOPSY BLADDER hx of bladder cancer, anxiety 04/23/2025 8:47 AM EDT documented as of this encounter Visit Diagnoses Not on filedocumented in this encounter Additional Health Concerns Infection Onset Date Last Indicated Resolved Time CoV-Risk 10/28/2019 10/28/2019 11/11/2019 1:24 AM EDT documented as of this encounter Care Teams Flat Screen Worker Relationship Specialty Start Date End Date Yaw Coronado MD [address] [place] [address] PCP - General Internal Medicine 11/17/17 documented as of this encounter Additional Source Comments The information contained in this document represents components of the legal health record. It is not the complete legal health record.[facility]
--- OUTSIDE RECORDS SUMMARY | 2025-04-11 13:39 | XMS_ITS | Encounter Summary ---
Author Organization [facility] Address [address] [place] [address] Care Team Providers Care Pt Escort Name Role Phone Yaw Coronado MD Primary Care Provider Encounter Details Date Type Department Care Team (Late st Contact Info) Description 06/02/2024 Lab Requisition [facility] - Main Lab [address] [place] [address] Marko Nash PA [address] [facility] [address] [place] [address] Urgency of urination Social History Tobacco Use Types Packs/Day Years Used Date Smoking Tobacco: Some Days Cigarettes Smokeless Tobacco: Never Alcohol Use Standard Drinks/Week Comments No 0 (1 standard drink = 0.6 oz pur e alcohol) Sex and Gender Information Value Date Recorded Sex Assigned at Not on file Legal Sex Male 5:28 PM EST Gender Identity Not on file Sexual Orientation Not on file documented as of this encounter Plan of Treatment Not on file documented as of this encounter Procedures Procedure Name Priority Date/Time Associated Diagnosis Comments CULTURE URINE Routine 06/02/2024 11:34 AM EST Urgency of urination documented in this encounter Results * Culture urine (06/02/2024 11:34 AM EST) Culture, Urine No growth 06/03/2024 11:13 AM EST [facility] Urine Urine specimen obtained by clean catch procedure / Unknown 06/02/2024 11:34 AM EST 06/02/2024 2:16 PM EST us [facility] MICROBIOLOGY - GENERAL ORDER SHAWANDA Final Result [facility] [address] [place] [address], documented in this encounter Visit Diagnoses Diagnosis Urgency of urination documented in this encounter Care Teams Pt Escort Relationship Specialty Start Date End Date Yaw Coronado MD [address] [place] [address] PCP - General Internal Medicine 10/05/19 documented as of this encounter
--- OUTSIDE RECORDS SUMMARY | 2025-04-11 13:39 | XMS_ITS | Encounter Summary ---
Author Organization [facility] Address [address] [place] [address] [place] [address] Phone Care Team Providers Care Art Display Maker Name Role Phone Yaw Coronado MD Primary Care Provider + Encounter Details Date Type Department Care Team (Late st Contact Info) Description 10/31/2019 Procedure Pass OR Admitting Dept - Virtual Department [address] [place] [address] Social History Tobacco Use Types Packs/Day Years [...] AM EDT Pre-Admission Testing Pre Procedure Evaluation [address] [place] [address] Clem Moore MD [facility], [address] [address] [email or web address] 04/23/2025 Procedure Pass OR Admitting Dept - Virtual Department [address] [place] [address] 04/23/2025 8:47 AM EDT Hospital Encounter OR Admitting Dept - Virtual Department [address] [place] [address] [place] [address] [place] [address], [address] [place] [address] 04/23/2025 8:47 AM EDT - 04/23/2025 10:07 AM EDT Surgery OR Admitting Dept - Virtual Department [address] [place] [address] Clem Moore MD [address] [place] [address], [address] [place] [address] [email or web address] CYSTOSCOPY, POSSIBLE FULGURATION BIOPSY BLADDER Scheduled Procedures Name Priority Associated Diagnoses Date/Ti nv CYSTOSCOPY FULGURATION BIOPSY BLADDER hx of bladder cancer, anxiety 04/23/2025 8:47 AM EDT documented as of this encounter Visit Diagnoses Not on filedocumented in this encounter Additional Health Concerns Infection Onset Date Last Indicated Resolved Time CoV-Risk 10/28/2019 10/28/2019 11/11/2019 1:24 AM EDT documented as of this encounter Care Teams Art Display Maker Relationship Specialty Start Date End Date Yaw Coronado MD [address] [place] [address] PCP - General Internal Medicine 11/17/17 documented as of this encounter Additional Source Comments The information contained in this document represents components of the legal health record. It is not the complete legal health record.[facility]
--- OUTSIDE RECORDS SUMMARY | 2025-04-11 13:39 | XMS_ITS | Clinical Summary ---
Author Organization [facility] Address [address] [place] [address] Phone Care Team Providers Care Steel Rigger Name Role Phone Yaw Coronado MD Primary Care Provider + Allergies Active Allergy Reactions Criticality Noted Date Comments Ciprofloxacin Nausea and/or Vomiting Medium 03/22/2018 Nausea/emesis of bile after cipro Medications psyllium husk (METAMUCIL ORAL) Take 2 capsules by mouth. Active docusate sodium (COLACE) 100 MG capsule Take 100 mg by mouth daily. Active budesonide-form oterol (SYMBICORT) 160-4.5 mcg/actuation inhaler Inhale 2 puffs into the lungs 2 (two) times a day. Active omeprazole (PRILOSEC) 20 MG capsule Take 20 mg by mouth daily. Active albuterol 90 mcg/actuation inhaler Inhale 2 puffs into the lungs every 6 (six) hours as needed for wheezing. Active atorvastatin (LIPITOR) 40 MG tablet Take 40 mg by mouth. Every other day Active GABAPENTIN ORAL Take 300 mg by mouth daily. As needed Active ascorbic acid, vitamin C, (VITAMIN C) 500 mg Chew Take by mouth 2 (two) times a day. Active multivitamins with minerals- folic acid-lycopene (MEN'S ONE-A-DAY) 400-20-300 mcg Tab Take 1 tablet by mouth daily. Active budesonide-form oterol 160-4.5 mcg/actuation inhaler Inhale 2 puffs into the lungs 2 (two) times a day. Active rosuvastatin (CRESTOR) 20 MG tablet Take 20 mg by mouth daily. Active doxycycline hyclate (DORYX) 100 MG tablet Take 100 mg by mouth 2 (two) times a day. 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 07/10/2024 History of bladder cancer 02/13/2020 Generalized anxiety disorder 02/13/2020 Gross hematuria 09/26/2019 Prostate cancer 11/30/2017 Resolved Problems Problem Noted Date Diagnosed Date Resolved Date Bladder tumor 09/26/2019 07/10/2024 Family History Medical History Relation Comments Colon cancer Father Colon cancer Paternal Aunt Ovarian cancer Sister Relation Status Comments Father Paternal Aunt Sister Alive Social History Tobacco Use Types Packs/Day Years Used Date Smoking Tobacco: Every Day Cigarettes 0.3 30 Smokeless Tobacco: Never Tobacco Cessation:Ready to Q uit: Not Asked; Counseling Given: Not Answered Alcohol Use Standard Drinks/Week Comments Yes 28 (1 standard drink = 0.6 oz pure alcohol) sober 03/07/2025 reports no dts Education Answer Date Recorded Are you interested [...] Sign Reading Time Taken Comments Blood Pressure 138/75 10/09/2024 10:37 AM EDT Pulse 76 10/09/2024 8:45 AM EDT Temperature 36.6 C (97.9 F) 10/09/2024 8:13 AM EDT Respiratory Rate 12 10/09/2024 8:45 AM EDT Oxygen Saturation 98% 10/09/2024 10:37 AM EDT Inhaled Oxygen Concentration - - Weight 93 kg (205 lb) 04/09/2025 10:35 AM EDT Height 177.8 cm (5' 10 ) 04/09/2025 10:35 AM EDT Body Mass Index 29.41 04/09/2025 10:35 AM EDT Plan of Treatment Upcoming Encounters Date Type Department Care Team (Latest Contact Info) Description 04/20/2025 8:30 AM EDT Pre-Admission Testing Pre Procedure Evaluation [address] [place] [address] Clem Moore MD [address] [place] [address], [address] [place] [address] [email or web address] 04/23/2025 Procedure Pass OR Admitting Dept - Virtual Department [address] [place] [address] 04/23/2025 8:47 AM EDT Hospital Encounter OR Admitting Dept - Virtual Department [address] [place] [address] Clem Moore MD [address] [place] [address], [address] [place] [address] [email or web address] 04/23/2025 8:47 AM EDT - 04/23/2025 10:07 AM EDT Surgery OR Admitting Dept - Virtual Department [address] [place] [address] Clem Moore MD [address] [place] [address], [address] [place] [address] [email or web address] CYSTOSCOPY, POSSIBLE FULGURATION BIOPSY BLADDER Scheduled Procedures Name Priority Associated Diagnoses Date/Ti me CYSTOSCOPY FULGURATION BIOPSY BLADDER hx of bladder cancer, anxiety 04/23/2025 8:47 AM EDT Health Maintenance Due Date Last Done Comments Adult Td,Tdap Booster 1954 DEPRESSION SCREENING 1966 HEPATITIS C SCREENING 1972 COLOGUARD 12/03/1999 COLONOSCOPY 12/03/1999 FIT TEST 12/03/1999 SIGMOIDOSCOPY 12/03/1999 VIRTUAL COLONOSCOPY 12/03/1999 ZOSTER VACCINES (1 of 2) 01/14/2016 11/19/2015 COLORECTAL CANCER SCREENING 02/18/2019 FOBT 02/18/2019 02/18/2018 ABDOMINAL AORTIC ANEURYSM (AAA) SCREENING 12/03/2019 INFLUENZA VACCINE (#1) 2025 2, 06/05/2021, 06/18/2020, Additional history exists COVID-19 VACCINE ( season) 2025 06/05/2021, 11/12/2020, 10/22/2020 SMOKING Hx and SMOKELESS TOBACCO SCREENING 04/09/2026 04/09/2025 LIPID PANEL 11/11/2026 11/11/2021 PNEUMOCOCCAL VACCINES (50+ years) Completed 03/10/2022, 05/30/2017 RSV VACCINE Completed 05/29/2024 HEPATITIS A VACCINES Aged Out No long er eligible based on patient's age to complete this topic HIB VACCINES Aged Out No longer eligi ble based on patient's age to complete this topic MENINGOCOCCAL VACCINES (ACWY) Aged Out No longer eligible based on patient's age to complete this topic MENINGOCOCCAL VACCINES (B) Aged Out N o longer eligible based on patient's age to complete this topic Medical Devices Implanted Type Area Display Fabricator Device Identifier Shelf Expiration Date Model / Serial / Lot Clip Clip Prostate Description:Pt reports radio active seeds unable to find this in epic as an option Explanted Type Area Display Fabricator Device Identifier Shelf Expiration Date Model / Serial / Lot Stent Ureteral 6fr 22 To 30cm Stretch Coated Jacklyn - [id number] Implanted:Qty: 1 on 10/31/2019 by Clem Moore MD at [facility] Right: Ureter [employer] 04/26/2022 [id number] / [id number] / [id number] Procedures Procedure Name Priority Date/Time Associated Diagnosis Comments LIPID PANEL Routine 11/11/2021 7:46 AM EDT FECAL OCCULT BLOOD, MULTIPLE Routine 02/18/2018 3:59 PM EDT Constipation, unspecified constipation type from Last 3 Months or Most Recently Relevant to Health Maintenance Results * (ABNORMAL) Lipid panel (11/11/2021 7:46 AM EDT) HDL 38 mg/dL [facility] Comment: Interpretation <40 mg/dL: Low HDL cholesterol (major risk factor for CHD) Greater than or equal to 60 mg/dL: High HDL cholesterol ( negative risk factor for CHD) HDL - cholesterol is affected by a number of factors, e.g. smoking, excerise, hormones, sex and age. CHOLESTEROL 185 0 - 240 mg/dL [facility] TRIGLYCERIDES 161(H) 30 - 160 mg/dL [facility] LDL 115 50 - 129 mg/dL [facility] Comment: LDL levels in terms of risk for coronary heart disease: <100 mg/dL: Optimal 100-129 mg/dL: Near or above optimal 130-159 mg/dL: Borderline high 160-189 mg/dL: High >190 mg/dL: Very High CARDIAC RISK RATIO 4.9 3.4 - 5.0 C [facility] 11/11/2021 7:46 AM EDT 11/13/2021 3:24 PM EDT us Yaw Coronado MD LAB BLOOD ORDERABLES Fin al Result Performing Organization Address [facility] [employer] de Phone Number [address] [address] * Fecal occult blood, multiple (02/18/2018 3:59 PM EDT) FECAL OCC BLD 1 DATE 82, [facility] Occult bld, stool, #1 Negative Negative [facility] FECAL OCC BLD 2 DATE 82,418 [facility] OCCULT BLD, STOOL, #2 Negative Negative [facility] FECAL OCC BLD 3 DATE 82, [facility] FECAL OCC BLD 3 RSLT Negative Negative [facility] Stool (Stool) 02/18/2018 3:5 9 PM EDT 02/18/2018 4:05 PM EDT us Dayana Morales PA-C BODY FLUIDS AND STOOLS ORDERABL ES Final Result Performing Organization Address [facility] [employer] de Phone Number [address] [address] from Last 3 Months or Most Recently Relevant to Health Maintenance Insurance MEDICARE PPO BLUE REPLACEMENT MEDICARE PPO BLUE REPLACEMENT MEDICARE PPO BLUE REPLAC[place] MEDICARE PPO BLUE REPLACEMENT [address] [address] MEDICARE PPO BLUE REPLACEMENT [place] [place] [address] MEDICARE PPO BLUE REPLACEMENT [address] [place] [address] MEDICARE PPO BLUE REPLACEMENT MEDICARE PPO BLUE REPLACEMENT MEDICARE PPO BLUE REPLACEMENT Care Teams Steel Rigger Relationship Specialty Start Date End Date Yaw Coronado MD [address] [place] [address] PCP - General Internal Medicine 11/17/17 Additional Source Comments The information contained in this document represents components of the legal health record. It is not the complete legal health record.[facility]
--- OUTSIDE RECORDS SUMMARY | 2025-04-11 13:39 | XMS_ITS | Encounter Summary ---
Author Organization [facility] Address [address] [place] [address] [place] [address] Phone Care Team Providers Care Atomic Welder Name Role Phone Yaw Coronado MD Primary Care Provider + Encounter Details Date Type Department Care Team (Late st Contact Info) Description 06/08/2022 Procedure Pass OR Admitting Dept - Virtual Department [address] [place] [address] Social History Tobacco Use Types Packs/Day Years [...] AM EDT Pre-Admission Testing Pre Procedure Evaluation [address] [place] [address] Clem Moore MD [facility], [address] [address] 04/23/2025 Procedure Pass OR Admitting Dept - Virtual Department [address] [place] [address] 04/23/2025 8:47 AM EDT Hospital Encounter OR Admitting Dept - Virtual Department [address] [place] [address] [place] [address] [place] [address], [address] [place] [address] [email or web address] 04/23/2025 8:47 AM EDT - 04/23/2025 10:07 AM EDT Surgery OR Admitting Dept - [facility] Department [address] [place] [address] [place] [address] [place] [address], [address] [place] [address] [email or web address] CYSTOSCOPY, POSSIBLE FULGURATION BIOPSY BLADDER Scheduled Procedures Name Priority Associated Diagnoses Date/Ti tn CYSTOSCOPY FULGURATION BIOPSY BLADDER hx of bladder cancer, anxiety 04/23/2025 8:47 AM EDT documented as of this encounter Visit Diagnoses Not on filedocumented in this encounter Care Teams Atomic Welder Relationship Specialty Start Date End Date Yaw Coronado MD [address] [place] [address] PCP - General Internal Medicine 11/17/17 documented as of this encounter Additional Source Comments The information contained in this document represents components of the legal health record. It is not the complete legal health record.[facility]
--- OUTSIDE RECORDS SUMMARY | 2025-04-11 13:39 | XMS_ITS | Encounter Summary ---
Author Organization [facility] Address [address] [facility] [address] [place] [address] Phone Care Team Providers Care Investor Relations Associate Name Role Phone Yaw Coronado MD Primary Care Provider + Reason for Referral * MRI/CAT Scan - Closed Specialty Diagnoses / Procedures Referred By Contac t Referred To Contact Procedures NM PET Whole Body Outside (No Interpretation) System, Provider Not In, [place] [address] Referral ID Status Reason Start Date Expiration Date Visits Re quested Visits Authorized [id number] Closed 02/07/2018 02/07/2019 1 1 Encounter Details Date Type Department Care Team (Late st Contact Info) Description 02/07/2018 Ancillary Orders [facility],Outside Imaging [address] [place], [place] [phone] System, Provider Not In, [facility] [address] [address] Social History Tobacco Use Types Packs/Day Years [...] EDT Pre-Admission Testing Pre Procedure Evaluation [address] [place] [address] Clem Moore MD [address] [place] [address], [address] [place] [address] 04/23/2025 Procedure Pass OR Admitting Dept - Virtual Department [address] [place] [address] 04/23/2025 8:47 AM EDT Hospital Encounter OR Admitting Dept - Virtual Department [address] [place] [address] Clem Moore MD [address] [place] [address], [address] [place] [address] 04/23/2025 8:47 AM EDT - 04/23/2025 10:07 AM EDT Surgery OR Admitting Dept - Virtual Department [address] [place] [address] Clem Moore MD [address] [place] [address], [address] [place] [address] [email or web address] CYSTOSCOPY, POSSIBLE FULGURATION BIOPSY BLADDER Scheduled Procedures Name Priority Associated Diagnoses Date/Ti az CYSTOSCOPY FULGURATION BIOPSY BLADDER hx of bladder cancer, anxiety 04/23/2025 8:47 AM EDT documented as of this encounter Results * NM PET Whole Body Outside (No Interpretation) (01/31/2018 12:00 AM EDT) Narrative SYSTEMGENERATED, DOCUMENTATION - 02/07/2018 5:19 PM EDT This study is for PACS storage only and not for interpretation. us Provider Not In System PhD IMG OUTSIDE IMAGING W /OUT INTERPRETATION Final Result documented in this encounter Visit Diagnoses Not on filedocumented in this encounter Additional Health Concerns Infection Onset Date Last Indicated Resolved Time CoV-Risk 10/28/2019 10/28/2019 11/11/2019 1:24 AM EDT documented as of this encounter Care Teams Investor Relations Associate Relationship Specialty Start Date End Date Yaw Coronado MD [address] [place] [address] PCP - General Internal Medicine 11/17/17 documented as of this encounter Additional Source Comments The information contained in this document represents components of the legal health record. It is not the complete legal health record.[facility]
--- OUTSIDE RECORDS SUMMARY | 2025-04-11 13:39 | XMS_ITS | Encounter Summary ---
Author Organization [facility] Address [address] [employer] [facility] [address] [place] [address] Phone Care Team Providers Care Cabin Furnishings Installer Name Role Phone Yaw Coronado MD Primary Care Provider + Encounter Details Date Type Department Care Team ([facility] st Contact Info) Description 07/10/2024 Procedure Pass OR Admitting Dept - Virtual Department [address] [place] [address] Social History Tobacco Use Types Packs/Day Years [...] on file documented as of this encounter Functional Status * Calculated C-SSRS Risk Score (Lifetime/Recent) Answer Date of Assessment Author No Risk Indicated 07/10/2024 6:50 AM EST Cami Miller, RN * [place] Suicide Severity Rating Scale (Screener/Recent Self-Report) Question Answer Date of Assessment Author 2. Non-Specific Active Suici roshni Thoughts (Past 1 Month) No 07/10/2024 6:50 AM Nguyen Ibrahim RN documented as of this encounter Plan of Treatment Upcoming Encounters Date Type Department Care Team (Latest Contact Info) Description 04/20/2025 8:30 AM EDT Pre-Admission Testing Pre Procedure Evaluation [address] [place] [address] Clem Moore MD [address] [place] [address], [address] [place] [address] [email or web address] 04/23/2025 Procedure Pass OR Admitting Dept - Virtual Department [address] [place] [address] 04/23/2025 8:47 AM EDT Hospital Encounter OR Admitting Dept - Virtual Department [address] [place] [address] Clem Moore MD [address] [place] [address], [address] [address] [email or web address] 04/23/2025 8:47 AM EDT - 04/23/2025 10:07 AM EDT Surgery OR Admitting Dept - [facility] Department [address] [place] [address] Clem Moore MD [address] [place] [address], [address] [address] [email or web address] CYSTOSCOPY, POSSIBLE FULGURATION BIOPSY BLADDER Scheduled Procedures Name Priority Associated Diagnoses Date/Ti ne CYSTOSCOPY FULGURATION BIOPSY BLADDER hx of bladder cancer, anxiety 04/23/2025 8:47 AM EDT documented as of this encounter Visit Diagnoses Not on filedocumented in this encounter Care Teams Cabin Furnishings Installer Relationship Specialty Start Date End Date Yaw Coronado MD [address] [place] [address] PCP - General Internal Medicine 11/17/17 documented as of this encounter Additional Source Comments The information contained in this document represents components of the legal health record. It is not the complete legal health record.[facility]
--- OUTSIDE RECORDS SUMMARY | 2025-04-11 13:39 | XMS_ITS | Encounter Summary ---
Author Organization [facility] Address [address] [place] [address] [place] [address] Phone Care Team Providers Care Mill Labor Supervisor Name Role Phone Yaw Coronado MD Primary Care Provider + Encounter Details Date Type Department Care Team (Latest Contact Info) Description 11/13/2021 Transcribe Orders [facility] Specimen Processing [address] [place] [address] Yaw Coronado MD [address] [place] [address] Malignant neoplasm of prostate (Primary Dx); Malignant neoplasm of bladder wall; Pulmonary emphysema, unspecified emphysema type; Lung mass Social History Tobacco Use Types Packs/Day Years [...] EDT Pre-Admission Testing Pre Procedure Evaluation [address] [place] [address] Clem Moore MD [address] [place] [address], [address] [place] [address] 04/23/2025 Procedure Pass OR Admitting Dept - Virtual Department [address] [place] [address] 04/23/2025 8:47 AM EDT Hospital Encounter OR Admitting Dept - Virtual Department [address] [place] [address] Clem Moore MD [address] [place] [address], [address] [place] [address] 04/23/2025 8:47 AM EDT - 04/23/2025 10:07 AM EDT Surgery OR Admitting Dept - Virtual Department [address] [place] [address] Clem Moore MD [address] [place] [address], [address] [place] [address] CYSTOSCOPY, POSSIBLE FULGURATION BIOPSY BLADDER Scheduled Procedures Name Priority Associated Diagnoses Date/Ti me CYSTOSCOPY FULGURATION BIOPSY BLADDER hx of bladder cancer, anxiety 04/23/2025 8:47 AM EDT documented as of this encounter Procedures Procedure Name Priority Date/Time Associated Diagnosis Comments LAB ADD ON Routine 11/13/2021 2:49 PM EDT Malignant neoplasm of prostate Malignant neoplasm of bladder wall Pulmonary emphysema, unspecified emphysema type Lung mass LIPID PANEL Routine 11/11/2021 7:46 AM EDT documented in this encounter Results * Lab Add On: A1C, Direct LDL,Lipid Panel,Magnesium level, Vitamin B12 (11/13/2021 2:49 PM EDT) CONTACT INFORMATION [phone] [facility] TEST REQUESTED A1C, DIRECT LDL,LIPID PANEL,MAGNESI UM LEVEL, VITAMIN B12 [facility] Comments (Chemistry) Add on order being processed. Floor or provider will be notified if testing cannot be performed [facility] 11/13/2021 2:49 PM EDT 11/13/2021 3:26 PM EDT us Yaw Coronado MD LAB BLOOD ORDERABLES Fin al Result Performing Organization Address [facility] Co de Phone Number [address] [phone] * (ABNORMAL) Lipid panel (11/11/2021 7:46 AM EDT) HDL 38 mg/dL [facility] Comment: Interpretation <40 mg/dL: Low HDL cholesterol (major risk factor for CHD) Greater than or equal to 60 mg/dL: High HDL cholesterol ( negative risk factor for CHD) HDL - cholesterol is affected by a number of factors, e.g. smoking, excerise, hormones, sex and age. CHOLESTEROL 185 0 - 240 mg/dL [facility] TRIGLYCERIDES 161(H) 30 - 160 mg/dL [facility] LDL 115 50 - 129 mg/dL [facility] Comment: LDL levels in terms of risk for coronary heart disease: <100 mg/dL: Optimal 100-129 mg/dL: Near or above optimal 130-159 mg/dL: Borderline high 160-189 mg/dL: High >190 mg/dL: Very High CARDIAC RISK RATIO 4.9 3.4 - 5.0 C [facility] 11/11/2021 7:46 AM EDT 11/13/2021 3:24 PM EDT us Yaw Coronado MD LAB BLOOD ORDERABLES Fin al Result Performing Organization Address City/[facility] [employer] de Phone Number [address] [phone] documented in this encounter Visit Diagnoses Diagnosis Malignant neoplasm of prostate- Primary Malignant neoplasm of bladder wall Malignant neoplasm of bladder, part unspecified Pulmonary emphysema, unspecified emphysema type Lung mass Swelling, mass, or lump in chest documented in this encounter Care Teams Mill Labor Supervisor Relationship Specialty Start Date End Date Yaw Coronado MD [address] [place] [address] PCP - General Internal Medicine 11/17/17 documented as of this encounter Additional Source Comments The information contained in this document represents components of the legal health record. It is not the complete legal health record.[facility]
--- OUTSIDE RECORDS SUMMARY | 2025-04-11 13:39 | XMS_ITS | Encounter Summary ---
Author Organization [facility] Address [address] [place] [address] [place] [address] Phone Care Team Providers Care Executive Communications Manager Name Role Phone Yaw Coronado MD Primary Care Provider + Encounter Details Date Type Department Care Team (Late st Contact Info) Description 11/11/2021 Procedure Pass OR Admitting Dept - Virtual Department [address] [place] [address] Social History Tobacco Use Types Packs/Day Years [...] AM EDT Pre-Admission Testing Pre Procedure Evaluation [address] [place] [address] Clem Moore MD [facility], [address] [address] [email or web address] 04/23/2025 Procedure Pass OR Admitting Dept - Virtual Department [address] [place] [address] 04/23/2025 8:47 AM EDT Hospital Encounter OR Admitting Dept - Virtual Department [address] [place] [address] [place] [address] [place] [address], [address] [place] [address] 04/23/2025 8:47 AM EDT - 04/23/2025 10:07 AM EDT Surgery OR Admitting Dept - [facility] Department [address] [place] [address] [place] [address] [place] [address], [address] [place] [address] [email or web address] CYSTOSCOPY, POSSIBLE FULGURATION BIOPSY BLADDER Scheduled Procedures Name Priority Associated Diagnoses Date/Ti wi CYSTOSCOPY FULGURATION BIOPSY BLADDER hx of bladder cancer, anxiety 04/23/2025 8:47 AM EDT documented as of this encounter Visit Diagnoses Not on filedocumented in this encounter Care Teams Executive Communications Manager Relationship Specialty Start Date End Date Yaw Coronado MD [address] [place] [address] PCP - General Internal Medicine 11/17/17 documented as of this encounter Additional Source Comments The information contained in this document represents components of the legal health record. It is not the complete legal health record.[facility]
--- OUTSIDE RECORDS SUMMARY | 2025-04-11 13:39 | XMS_ITS | Encounter Summary ---
Author Organization [facility] Address [address] [place] [address] [place] [address] Phone Care Team Providers Care Dairy Laboratory Technician Name Role Phone Yaw Coronado MD Primary Care Provider + Encounter Details Date Type Department Care Team (Late st Contact Info) Description 05/14/2020 Procedure Pass OR Admitting Dept - Virtual Department [address] [place] [address] Social History Tobacco Use Types Packs/Day Years [...] AM EDT Pre-Admission Testing Pre Procedure Evaluation [address] [place] [address] Clem Moore MD [facility], [address] [address] [email or web address] 04/23/2025 Procedure Pass OR Admitting Dept - Virtual Department [address] [place] [address] 04/23/2025 8:47 AM EDT Hospital Encounter OR Admitting Dept - Virtual Department [address] [place] [address] Clem Moore MD [address] [place] [address], [address] [place] [address] 04/23/2025 8:47 AM EDT - 04/23/2025 10:07 AM EDT Surgery OR Admitting Dept - Virtual Department [address] [place] [address] Clem Moore MD [address] [place] [address], [address] [place] [address] [email or web address] CYSTOSCOPY, POSSIBLE FULGURATION BIOPSY BLADDER Scheduled Procedures Name Priority Associated Diagnoses Date/Ti sc CYSTOSCOPY FULGURATION BIOPSY BLADDER hx of bladder cancer, anxiety 04/23/2025 8:47 AM EDT documented as of this encounter Visit Diagnoses Not on filedocumented in this encounter Care Teams Dairy Laboratory Technician Relationship Specialty Start Date End Date Yaw Coronado MD [address] [place] [address] PCP - General Internal Medicine 11/17/17 documented as of this encounter Additional Source Comments The information contained in this document represents components of the legal health record. It is not the complete legal health record.[facility]
--- OUTSIDE RECORDS SUMMARY | 2025-04-11 13:40 | XMS_ITS | Encounter Summary ---
Author Organization [facility] Address [address] [place] [address] [place] [address] Phone Care Team Providers Care Game Farm Helper Name Role Phone Yaw Coronado MD Primary Care Provider + Encounter Details Date Type Department Care Team (Late st Contact Info) Description 10/07/2020 Procedure Pass OR Admitting Dept - Virtual Department [address] [place] [address] Social History Tobacco Use Types Packs/Day Years [...] AM EDT Pre-Admission Testing Pre Procedure Evaluation [address] [place] [address] Clem Moore MD [facility], [address] [address] 04/23/2025 Procedure Pass OR Admitting Dept - Virtual Department [address] [place] [address] 04/23/2025 8:47 AM EDT Hospital Encounter OR Admitting Dept - Virtual Department [address] [place] [address] Clem Moore MD [address] [place] [address], [address] [place] [address] 04/23/2025 8:47 AM EDT - 04/23/2025 10:07 AM EDT Surgery OR Admitting Dept - Virtual Department [address] [place] [address] Clem Moore MD [address] [place] [address], [address] [place] [address] [email or web address] CYSTOSCOPY, POSSIBLE FULGURATION BIOPSY BLADDER Scheduled Procedures Name Priority Associated Diagnoses Date/Ti mo CYSTOSCOPY FULGURATION BIOPSY BLADDER hx of bladder cancer, anxiety 04/23/2025 8:47 AM EDT documented as of this encounter Visit Diagnoses Not on filedocumented in this encounter Care Teams Game Farm Helper Relationship Specialty Start Date End Date Yaw Coronado MD [address] [place] [address] PCP - General Internal Medicine 11/17/17 documented as of this encounter Additional Source Comments The information contained in this document represents components of the legal health record. It is not the complete legal health record.[facility]
--- OUTSIDE RECORDS SUMMARY | 2025-04-11 13:40 | XMS_ITS | Clinical Summary ---
Author Organization [facility] Address [address] [place] [address] Phone Care Team Providers Care Radioisotope Production Operator Name Role Phone Yaw Coronado MD Primary Care Provider Surgical History Surgery Date Site/Laterality Comments PROSTATE SURGERY PROCEDURE:PROSTATE SURGERY ROTATOR CUFF REPAIR PROCEDURE:ROTATOR CUFF REPAIR UPPER GASTROINTESTINAL ENDOSCOPY PROCEDURE:UPPER GASTROINTESTINAL ENDOSCOPY COLON SURGERY PROCEDURE:COLON SURGERY Medical History Medical History Date Comments Bladder cancer (CMS/HCC V24, CMS/HCC V28) DX:Bladder cancer (HCC) Family History Medical History Relation Name Comments [...] on file Sexual Orientation Not on file Obstetrics History Plan of Treatment Health Maintenance Due Date Last Done Comments Colorectal Cancer Screening: Colonoscopy 1954 DTaP,Tdap,and Td Vaccines (1 - Tdap) 1973 Pneumococcal Vaccine: 50+ Ye ars (1 of 2 - PCV) 1973 Zoster Vaccines (1 of 2) 2004 Abdominal Aortic Aneurysm (A AA) Screen 06/02/2024 Cholesterol Screening (Lipid Panel) 06/02/2024 Falls Risk Assessment 06/02/2024 Hepatitis C Screening 06/02/2024 Social Influencers of Health Screening 06/02/2024 Depression Screening 06/28/2024 COVID-19 Vaccine ( - 2023-2 5 season) 2025 Influenza Vaccine (#1) 2025 RSV Immunization Adult Patie nts (1 - 1-dose 75+ series) 2029 HIB Vaccines Aged Out No longer eligi ble based on patient's age to complete this topic HPV Vaccines Aged Out No longer eligi ble based on patient's age to complete this topic Hepatitis A Vaccines Aged Out No long er eligible based on patient's age to complete this topic Hepatitis B Vaccines Aged Out No long er eligible based on patient's age to complete this topic IPV Vaccines Aged Out No longer eligi ble based on patient's age to complete this topic MMR Vaccines Aged Out No longer eligi ble based on patient's age to complete this topic Meningococcal ACWY Vaccine Aged Out N o longer eligible based on patient's age to complete this topic Meningococcal B Vaccine Aged Out No l onger eligible based on patient's age to complete this topic RSV Immunization Patients Un eliza 20 months Aged Out No longer eligible b ased on patient's age to complete this topic Varicella Vaccines Aged Out No longer eligible based on patient's age to complete this topic Insurance [facility] Care Teams Radioisotope Production Operator Relationship Specialty Start Date End Date Yaw Coronado MD [address] [place] [address] PCP - General Internal Medicine 10/05/19
--- OUTSIDE RECORDS SUMMARY | 2025-04-11 13:40 | XMS_ITS | Encounter Summary ---
Author Organization [facility] Address [address] [facility] [address] [place] [phone] Phone Care Team Providers Care Plate Shear Operator Name Role Phone Yaw Coronado MD Primary Care Provider + Encounter Details Date Type Department Care Team (Latest Contact Info) Description 04/19/2020 Transcribe Orders [facility] [address] [place] [address] Clem Moore MD [address] [place] [address], [address] [address] [email or web address] Personal history of malignant neoplasm of prostate (Primary Dx) Social [...] EDT Pre-Admission Testing Pre Procedure Evaluation [address] [place] [address] Clem Moore MD [address] [place] [address], [address] [place] [address] [email or web address] 04/23/2025 Procedure Pass OR Admitting Dept - Virtual Department [address] [place] [address] 04/23/2025 8:47 AM EDT Hospital Encounter OR Admitting Dept - Virtual Department [address] [place] [address] Clem Moore MD [address] [place] [address], [address] [place] [address] 04/23/2025 8:47 AM EDT - 04/23/2025 10:07 AM EDT Surgery OR Admitting Dept - Virtual Department [address] [place] [address] Clem Moore MD [address] [place] [address], [address] [place] [address] [email or web address] CYSTOSCOPY, POSSIBLE FULGURATION BIOPSY BLADDER Scheduled Procedures Name Priority Associated Diagnoses Date/Ti de CYSTOSCOPY FULGURATION BIOPSY BLADDER hx of bladder cancer, anxiety 04/23/2025 8:47 AM EDT documented as of this encounter Results * PSA (screening) (04/19/2020 12:10 PM EDT) PSA <0.05 0 - 4.00 ng/mL [facility] Blood 04/19/2020 12:1 0 PM EDT 04/19/2020 12:14 PM EDT us Clem Moore MD LAB BLOOD ORDERABLES Final Res ult [address] [address] documented in this encounter Visit Diagnoses Diagnosis Personal history of malignant neoplasm of prostate- Primary documented in this encounter Care Teams Plate Shear Operator Relationship Specialty Start Date End Date Yaw Coronado MD [address] [place] [address] PCP - General Internal Medicine 11/17/17 documented as of this encounter Additional Source Comments The information contained in this document represents components of the legal health record. It is not the complete legal health record.[facility]
== END 2025-04-11 11:44 | disposition home or self-care (01) ==
LOC: HO.HMCFM 11:02
PROVIDERS: PCP Physician Assistant; Visit Provider Physician Assistant
DX: Z01.818 Encounter for other preprocedural examination (principal); C67.9 Malignant neoplasm of bladder, unspecified; E78.5 Hyperlipidemia, unspecified; J44.9 Chronic obstructive pulmonary disease, unspecified; W57.XXXA Bitten or stung by nonvenomous insect and other nonvenomous arthropods, initial encounter

== ENCOUNTER 2025-04-11 11:02 | Outpatient (REF) | payer BC, SELFPAY ==
[2025-04-11 14:13] LABS: MANUAL DIFF FLAG NO
[2025-04-11 14:18] LABS: Hematocrit 51.3 % (42.0-52.0); Hemoglobin 16.2 g/dl (14.0-18.0); Imm Gran Abs Auto 0.03 X10*3/uL (0.00-0.03); Imm Gran Pct Auto 0.3 % (0.0-0.4); Lymphocytes Absolute Auto 1.9 X10*3/uL (1.2-4.9); Mean Corpuscular HGB Conc 31.6 g/dl (31.0-36.0); Mean Corpuscular Hemoglobin 29.4 pg (27.0-33.0); Mean Corpuscular Volume 93.1 fL (80.0-98.0); NRBC Abs Auto 0.000 X10*3/uL (0.0-0.012); NRBC Pct Auto 0.0 /100WBC (0.0-0.2); Platelet Count 331 X10*3/uL (160-400); Red Blood Count 5.51 X10*6/uL (4.60-5.80); White Blood Count 9.3 X10*3/uL (4.8-10.8)
[2025-04-11 14:40] LABS: Alanine Aminotransferase 37 U/L (0-40); Albumin Level 4.6 g/dL (3.5-5.0); Anion Gap 11 (12-20); Aspartate Amino Transferase 32 U/L (5-37); Blood Urea Nitrogen 14 mg/dL (9-16); Calcium 9.8 mg/dL (8.4-10.2); Carbon Dioxide 29 mmol/L (22-29); Chloride 105 mmol/L (96-108); Cholesterol 167 mg/dL (<200); Estimated Glomerular Filt Rate > 60; HDL Cholesterol 38 mg/dL (>40); Potassium 5.2 mmol/L (3.3-5.1); Sodium 140 mmol/L (135-145); Total Protein 7.2 g/dL (6.5-8.0); Triglycerides 68 mg/dL (<150)
[2025-04-11 14:55] LABS: Alkaline Phosphatase 64 U/L (39-117)
[2025-04-12 06:47] LABS: Lyme Abs Screen <0.90 index
== END 2025-04-11 11:03 | disposition home or self-care (01) ==
LOC: HO.WFDLDS 11:02
PROVIDERS: PCP Physician Assistant; Visit Provider Physician Assistant
DX: Z01.818 Encounter for other preprocedural examination (principal); C67.9 Malignant neoplasm of bladder, unspecified; E78.5 Hyperlipidemia, unspecified; J44.9 Chronic obstructive pulmonary disease, unspecified; T14.8XXA Other injury of unspecified body region, initial encounter; F17.210 Nicotine dependence, cigarettes, uncomplicated; W57.XXXA Bitten or stung by nonvenomous insect and other nonvenomous arthropods, initial encounter; Y93.9 Activity, unspecified; Y92.9 Unspecified place or not applicable; Y99.9 Unspecified external cause status
CPT/HCPCS: 36415; 80053; 80061; 84443; 85025; 86617; 86618; 93005

== ENCOUNTER 2025-04-18 09:36 | Outpatient (REF) | payer BC, SELFPAY ==
--- OUTSIDE RECORDS SUMMARY | 2025-04-18 11:05 | XMS_ITS | Encounter Summary ---
Author Organization [facility] Address [address] [place] [address] Care Team Providers Care Digital Sales Assistant Name Role Phone Yaw Coronado MD Primary Care Provider Encounter Details Date Type Department Care Team (Late st Contact Info) Description 06/02/[address] [facility] Lab [address] [place] [address] Marko Nash PA [address] [facility] [address] [place] [address] Urgency of urination Social History Tobacco Use [...] Urine No growth 06/03/2024 11:13 AM EST [facility] Urine Urine specimen obtained by clean catch procedure / Unknown 06/02/2024 11:34 AM EST 06/02/2024 2:16 PM EST us Marko [facility] MICROBIOLOGY - GENERAL ORDER SHAWANDA Final Result [facility] [address] [place] [address], documented in this encounter Visit Diagnoses Diagnosis Urgency of urination documented in this encounter Care Teams Digital Sales Assistant Relationship Specialty Start Date End Date Yaw Coronado MD [address] [place] [address] PCP - General Internal Medicine 10/05/19 documented as of this encounter
--- OUTSIDE RECORDS SUMMARY | 2025-04-18 11:05 | XMS_ITS | Clinical Summary ---
Author Organization [facility] Address [address] [place] [address] Phone Care Team Providers Care Care Administrative Tech Name Role Phone Yaw Coronado MD [...] patient's age to complete this topic Insurance [facility] Care Teams Care Administrative Tech Relationship Specialty Start Date End Date Yaw Coronado MD [address] [place] [address] PCP - General Internal Medicine 10/05/19
--- OUTSIDE RECORDS SUMMARY | 2025-04-18 11:05 | XMS_ITS | Clinical Summary ---
Author Organization [facility] Address [address] [place] [address] Care Team Providers Care Cooling Room Attendant Name Role Phone Yaw Coronado MD Primary Care Provider +1- [phone] Allergies Active Allergy Reactions Criticality Noted Date [...] age to complete this topic Care Teams Cooling Room Attendant Relationship Specialty Start Date End Date Yaw Coronado MD PCP - General Internal Medicine 10/05/19
[2025-04-18 11:38] LABS: Anion Gap 10 (12-20); Blood Urea Nitrogen 26 mg/dL (9-16); Calcium 9.6 mg/dL (8.4-10.2); Carbon Dioxide 28 mmol/L (22-29); Chloride 108 mmol/L (96-108); Estimated Glomerular Filt Rate > 60; Potassium 5.3 mmol/L (3.3-5.1); Sodium 141 mmol/L (135-145)
== END 2025-04-18 09:37 | disposition home or self-care (01) ==
LOC: HO.WFDLDS 09:36
PROVIDERS: Visit Provider Physician Assistant
DX: E87.5 Hyperkalemia (principal)
CPT/HCPCS: 36415; 80048

== ENCOUNTER 2025-05-30 10:16 | Outpatient (AMB) | payer BC, SELFPAY ==
--- NOTE | 2025-05-30 10:18 | MHC.PC.OV ---
Vital Signs 05/30/25 10:23 05/30/25 10:28 Height 5 ft 10.08 in Weight 199 lb 4 oz BMI 28.5 BP 154/68 H 136/66 Blood Pressure Location Lt brachial Lt brachial Position Sitting Sitting Respiration 18 Pulse 48 L Pulse Source Pulse Oximeter Temp 97.9 F Temp Source Oral Pulse Oximetry (%) 98 Intake Visit Reasons: labs f/u Intake Note: Follow up Manager Residential Required: No Allergies ciprofloxacin Allergy (Verified 05/30/25 10:20) weight loss Medication List - Last Reconciled 05/30/25 by Opal Alarcon PA-C albuterol sulfate 90 mcg/actuation inhalation ascorbate calcium (vitamin C) . budesonide-formoterol 160-4.5 mcg/actuation (Breyna) inhalation docusate sodium 100 mg PO BID gabapentin 300 mg PO TID PRN multivitamin 1 tab PO DAILY omeprazole 20 mg PO DAILY rosuvastatin 20 mg PO DAILY Tobacco use date assessed: 05/30/25 Dental Screening Dental Screen Date: 12/07/24 HPI labs f/u HPI Details Patient is a 69-year-old male with a significant history prostate cancer, bladder cancer, hyperlipidemia, COPD presenting today for a follow up. Eyes: he is developing macular degeneration and following wagon person. Pulm: he has cut back on smoking. He is getting low dose chest in August 2025. Has copd without any recent exacerbations. On Breyna. He does report that he has been a bit more short of breath over the last couple of months. It is exertional. Does not appear to be in inhaler. Uro: Recent bladder biopsy in March by Dr. Moore which is precancerous. He is scheduled in September for surgery for the bladder lesion. CV: Blood pressure today in the office is 154/68 and repeated 136/66. His heart rate is 48 and the last time he was seen it was 42. He states over the last couple months he has had more shortness a breath with exertion than baseline. He does have a history of smoking, calcifications of the coronary arteries noted on low-dose chest CT imaging in an abnormal but stable EKG. He denies any chest pain or palpitations. He states that about 10 years ago he did a stress test on the treadmill and does not think he would be able to do this again. He states it was very hard for him and with his recent bladder surgeries he has significant pelvic discomfort especially with exertion. He states that his breathing he does feel very short of breath and when she does not think he would be able to run on a treadmill either. 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 He sees [facility] endocrinology.. 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 He has chronic constipation and states that this happened starting in 2013 after he had his total prostatectomy. He it is open now to following with GI. Msk: has chronic back pain and uses gabapentin as needed. Psych: Does not follow with behavioral health or wish to. No SI/HI. Not on any medications. Colonoscopy: reports double endoscopy approx 2021, due in 2026, states he had polyps and severe diverticulosis. [facility] Surgical History (Updated 05/30/25 @ 10:30 by Jennifer Iglesias CMA) History of biopsy of bladder H/O endoscopy H/O colonoscopy Family History Father Cancer of colon Sister Cancer Social History (Updated 05/30/25 @ 10:31 by Jennifer Iglesias CMA) Housing: House Alcohol intake: former Comment: quit two months ago Patient Tobacco Use Status: Current everyday Tobacco user Cigarettes Per Day: 2 Years Smoked: 50 e-Cigarette/Vaping Use: Never Used Second Hand Smoke Exposure: No Substance Use Type: Marijuana service: No Current occupational status: retired Cognitive needs: No Hearing needs: No Vision needs: No Questionnaire Thrive Questionnaire Date Thrive assessed: 12/07/24 I am a: Patient What is your living situation today?: I have a steady place to live Within the past 12 months, did the food you bought not last and you didn't have the money to get more?: I choose not to answer this question Within the past 12 months, did you worry whether your food would run out before you got money to buy more?: I choose not to answer this question Do you have trouble paying for medicines?: No Do you have trouble getting transportation to medical appointments?: I choose not to answer this question Do you have trouble paying your heating and electricity bill?: No Do you have trouble taking care of your child, family member or friend?: No Do you have trouble with day-to-day activities such as bathing, preparing meals, shopping, managing finances, etc.?: I choose not to answer this question Are you currently unemployed and looking for a job?: No Are you interested in more education?: No Please select the resources that you would like help with: None Currently or been in a relationship where the following occur: No concerns reported THRIVE Score: 0 AUDIT C Alcohol Use Questionnaire (AUDIT-C) 1. How often do you have a drink containing alcohol?: Never 3. How often do you have six or more drinks on one occasion?: Never Total Score: 0 Physical exam (Primary Care) Vital Signs: Last Vital Signs Temp 97.9 F 05/30/25 10:23 Pulse 48 L 05/30/25 10:23 Resp 18 05/30/25 10:23 BP 136/66 05/30/25 10:28 Pulse Ox 98 05/30/25 10:23 BMI result Body Mass Index 28.5 Tobacco/Smoking Status: Tobacco use Status Tobacco use date assessed 05/30/25 05/30/25 10:25 Patient Tobacco Use Status Current everyday Tobacco 05/30/25 10:31 e-Cigarette/Vaping Use Never Used 05/30/25 10:31 Thrive Assessment: Date of Thrive Assessment Date Thrive assessed 12/07/24 05/30/25 10:20 Currently or been in a relationship where the following occur: No concerns reported Const Orientation/consciousness: patient oriented x3 HENMT Ears: hearing grossly normal bilaterally Neck Thyroid: Thyroid normal Lymphatic: no lymphadenopathy noted Resp Auscultation: clear to auscultation bilaterally Cardio Rate: regular rate Rhythm: regular rhythm Heart sounds: S1 normal heart sound present and S2 normal heart sound present GI Inspection: Yes normal to inspection Palpation (GI): Soft to palpation and Other GI palpation findings present (nontender, no cva tenderness) Auscultation: normoactive bowel sounds Rectal Exam - Male: Yes deferred Skin General skin exam: no rashes or lesions noted Neuro General: patient oriented x3, gait normal and no focal motor deficits Results Reviewed Results Reviewed: Laboratory Tests 04/11/25 04/18/25 11:47 09:37 WBC 9.3 RBC 5.51 Hgb 16.2 Hct 51.3 Plt Count 331 Sodium 141 Potassium 5.3 H Chloride 108 Carbon Dioxide 28 Anion Gap 10 L BUN 26 H Creatinine 1.07 Estimated GFR > 60 Random Glucose 107 Calcium 9.6 AST 32 ALT 37 Alkaline Phosphatase 64 Triglycerides 68 Cholesterol 167 LDL Cholesterol, Calc 116 H HDL Cholesterol 38 L TSH 0.84 Lyme Screen IgG & IgM <0.90 Coding Level of Care Code Est Pt Level 4 (07807) Complex visit Add On G2211 Diagnoses HLD (hyperlipidemia) E78.5 Hyperkalemia E87.5 Bladder cancer C67.9 Constipation, chronic K59.09 Pancreatic cyst K86.2 Adrenal incidentaloma E27.8 KERR (dyspnea on exertion) R06.09 Bradycardia R00.1 Abnormal EKG R94.31 Assessment & Plan Assessment & Plan (1) HLD (hyperlipidemia): Code(s): E78.5 - Hyperlipidemia, unspecified Category: Medical Plan: We will monitor. Continue Crestor. (2) Hyperkalemia: Code(s): E87.5 - Hyperkalemia Category: Medical Plan: Last labs did show an elevated potassium he had this repeated at the urologist office and it was normal recently. He states that he reduced the amount of potassium rich foods that he was eating. We will monitor (3) Bladder cancer: Code(s): C67.9 - Malignant neoplasm of bladder, unspecified Category: Medical Plan: Continue follow up with Dr. Moore. Has surgery planned for September. (4) Constipation, chronic: Code(s): K59.09 - Other constipation Category: Medical Plan: Referral to [facility] GI. Unchanged (5) Pancreatic cyst: Code(s): K86.2 - Cyst of pancreas Category: Medical Plan: As above (6) Adrenal incidentaloma: Code(s): E27.8 - Other specified disorders of adrenal gland Category: Medical Plan: Referral to endocrinology for insurance purposes to [facility]. He reports having this worked up and monitored (7) KERR (dyspnea on exertion): Code(s): R06.09 - Other forms of dyspnea Category: Medical Plan: Chest x-ray ordered Echo ordered and nuclear stress test ordered We discussed warning signs that would require emergent medical treatment. If anything worsens or changes advised to go to the hospital. Labs reviewed and ordered (8) Bradycardia: Code(s): R00.1 - Bradycardia, unspecified Category: Medical Plan: As above (9) Abnormal EKG: Code(s): R94.31 - Abnormal electrocardiogram [ECG] [EKG] Category: Medical Plan: Referral to cardiology. Orders: Orders CA stress test Today C67.9 - Malignant neoplasm of bladder, unspecified, F17.200 - Nicotine dependence, unspecified, uncomplicated, J44.9 - Chronic obstructive pulmonary disease, unspecified, R00.1 - Bradycardia, unspecified, R06.09 - Other forms of dyspnea, R94.31 - Abnormal electrocardiogram [ECG] [EKG] XR chest 2V Today R06.09 - Other forms of dyspnea CA echo transthoracic complete Today R00.1 - Bradycardia, unspecified, R06.09 - Other forms of dyspnea NM cardiolite stress test Today R06.09 - Other forms of dyspnea, R07.9 - Chest pain, unspecified Referrals Gastroenterology Referral K59.09 - Other constipation, K86.2 - Cyst of pancreas Endocrinology Referral E27.8 - Other specified disorders of adrenal gland Urology Referral C61 - Malignant neoplasm of prostate, C67.9 - Malignant neoplasm of bladder, unspecified Cardiology Referral E78.5 - Hyperlipidemia, unspecified, R00.1 - Bradycardia, unspecified, R06.09 - Other forms of dyspnea, R94.31 - Abnormal electrocardiogram [ECG] [EKG]
[2025-05-30 10:23] VITALS: BP 154/68; PULSE 48; RESP 18; TEMP 36.6; O2SAT 98; BMI 28.5
[2025-05-30 10:28] VITALS: BP 136/66
--- OUTSIDE RECORDS SUMMARY | 2025-05-30 11:45 | XMS_ITS | Clinical Summary ---
Author Organization [facility] Address [address] [place] [address] Care Team Providers Care Global President Name Role Phone Yaw Coronado MD Primary Care Provider +1- [phone] Allergies Active Allergy Reactions Criticality Noted Date [...] age to complete this topic Care Teams Global President Relationship Specialty Start Date End Date Yaw Coronado MD PCP - General Internal Medicine 10/05/19
--- OUTSIDE RECORDS SUMMARY | 2025-05-30 11:45 | XMS_ITS | Clinical Summary ---
Author Organization [facility] Address [address] [place] [address] Phone Care Team Providers Care Sanding Machine Operator Name Role Phone Yaw Coronado MD Primary Care Provider + Allergies Active Allergy Reactions Criticality Noted Date Comments Ciprofloxacin Nausea and/or Vomiting Low 03/22/2018 Medications psyllium husk (METAMUCIL ORAL) Take 2 [...] Active Problems Problem Noted Date Diagnosed Date GERD (gastroesophageal reflux disease) Multinodular goiter 04/23/2025 Multiple pulmonary nodules 04/23/2025 Anxiety 04/23/2025 Neoplasm of uncertain behavior of bladder 2024 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 07/10/2024 History of bladder cancer 02/13/2020 Generalized anxiety disorder 02/13/2020 Gross hematuria 09/26/2019 Prostate cancer 11/30/2017 Resolved Problems Problem Noted Date Diagnosed Date Resolved Date Bladder tumor 09/26/2019 07/10/2024 Encounters Date Type Department Care Team Description 04/23/2025 8:47 AM EDT - 04/23/2025 10:07 AM EDT Surgery OR Admitting Dept - Virtual Department [address] [place] [address] Clem Moore MD CYSTOSCOPY and FULGURATION BIOPSY BLADDER 04/23/2025 8:35 AM EDT Anesthesia Event OR Admitting Dept - Virtual Department [address] [place] [address] Whit Corona MD Noviello, John Richard, CRNA 04/23/2025 7:13 AM EDT - 04/23/2025 11:15 AM EDT Hospital Encounter OR Admitting Dept - Virtual Department [address] [place] [address] Clem Moore MD Discharge Disposition: Home or Self Care 04/23/2025 Procedure Pass OR Admitting Dept - Virtual Department [address] [place] [address] 04/20/2025 8:30 AM EDT Pre-Admission Testing Pre Procedure Evaluation [address] [place] [address] Clem Moore MD from Last 3 Months Family History Medical History Relation Comments Colon [...] Sign Reading Time Taken Comments Blood Pressure 126/78 04/23/2025 11:15 AM EDT Pulse 78 04/23/2025 11:15 AM EDT Temperature 36.4 C (97.5 F) 04/23/2025 11:15 AM EDT Respiratory Rate 18 04/23/2025 11:15 AM EDT Oxygen Saturation 96% 04/23/2025 10:00 AM EDT Inhaled Oxygen Concentration - - Weight 93 kg (205 lb) 04/09/2025 10:35 AM EDT Height 177.8 cm (5' 10 ) 04/09/2025 10:35 AM EDT Body Mass Index 29.41 04/09/2025 10:35 AM EDT Plan of Treatment Health Maintenance Due [...] 10/22/2020 SMOKING Hx and SMOKELESS TOBACCO SCREENING 04/23/2026 04/23/2025 LIPID PANEL 11/11/2026 11/11/2021 PNEUMOCOCCAL VACCINES (50+ [...] this topic Medical Devices Implanted Type Area Marine Biologist Device Identifier Shelf Expiration Date Model / Serial / Lot Clip Clip Prostate Description:Pt reports radio active seeds unable to find this in epic as an option Explanted Type Area Marine Biologist Device Identifier Shelf Expiration Date Model / Serial / Lot Stent Ureteral 6fr 22 To 30cm Stretch Coated Jacklyn - [id number] Implanted:Qty: 1 on 10/31/2019 by Clem Moore MD at [facility] Right: Ureter [employer] CONSUELO 04/26/2022 [id number] / [id number] / [id number] Procedures Procedure Name Priority Date/Time Associated Diagnosis Comments AIRWAY PLACEMENT Routine 04/23/2025 8:[address] CYSTOURETHROSCOPY, BIOPSY 04/23/2025 8:41 AM EDT Bladder neoplasm of uncertain malignant potential History of bladder cancer Anxiety disorder ECG 12-LEAD Routine 04/23/2025 7:55 AM EDT ETHANOL, BLOOD STAT 04/23/2025 7:52 AM EDT BASIC METABOLIC PANEL (BMP) STAT 04/23/2025 7:52 AM EDT CBC STAT 04/23/2025 7:52 AM EDT ANATOMIC PATHOLOGY Routine 04/23/2025 12 :00 AM EDT LIPID PANEL Routine 11/11/2021 7:46 AM EDT FECAL OCCULT BLOOD, MULTIPLE Routine 02/18/2018 3:59 PM EDT Constipation, unspecified constipation type from Last 3 Months or Most Recently Relevant to Health Maintenance Results * ANES ETT DOUBLE LUMEN - AIRWAY LDA (04/23/2025 8:47 AM EDT) Narrative Ravi Ptarick CRNA - 04/23/2025 8:47 AM EDT Ravi Patrick CRNA 04/23/2025 8:50 AM Airway Placement Procedure Note: Procedure performed by: fellow/resident/ROAD MENDER Anesthesiologist: Whit Corona MD Fellow/Resident/ROAD MENDER: Ravi Patrick CRNA Airway procedure initiated at:04/23/2025 8:47 AM and ended at. Personal Protective Equipment: Mask: surgical mask Eye Protection: eye shield Gloves: gloves Gown: no gown Mask Ventilation: Quality: not attempted Airway Placement: Technique: LMA Rapid sequence induction: no LMA Insertion: LMA size: 5 LMA placement attempts: 1. Outcomes: Evidence of dental injury? no Complications observed? no us Whit Corona MD CT ANESTHESIA Final Result * ECG 12-LEAD (04/23/2025 7:55 AM EDT) Ventricular Rate EKG/MIN 88 BPM [facility] Atrial Rate [address] [facility] [address] Interval 154 ms [facility] QRS Duration 130 ms [facility] QT Interval 348 ms [facility] QTC Interval 421 ms [facility] P [place] 76 degrees [facility] R Wave [place] 63 degrees [facility] T Wave [place] 28 degrees [facility] 04/23/2025 7:55 AM EDT 04/26/2025 1:49 PM EDT Narrative [facility] - 04/26/2025 1:49 PM EDT Sinus rhythm with frequent Premature ventricular complexes Right bundle branch block Abnormal ECG When compared with ECG of 26-Sep-2019 06:42, Premature ventricular complexes are now Present Confirmed by Deshaun Whitaker ([id number]) on 04/26/2025 1:49:37 PM us Clem Moore MD ECG ORDERABLES Final Result [facility] * Ethanol, blood (04/23/2025 7:52 AM EDT) ETHANOL <10 <10 mg/dL [facility] Blood 04/23/2025 7:52 AM EDT 04/23/2025 7:59 AM EDT us Clem Moore MD LAB BLOOD BKR ORDERABLES Final Result Performing Organization Address [facility] Co de Phone Number [address] [address] * (ABNORMAL) CBC (04/23/2025 7:52 AM EDT) WBC 8.98 4.00 - 11.00 K/uL [facility] RBC 5.06 4.50 - 5.90 M/uL [facility] HGB 15.0 13.5 - 17.5 g/dL [facility] HCT 47.0 41.0 - 53.0 % [facility] PLT 286 150 - 450 K/uL [facility] MCV 92.9 80.0 - 100.0 fL [facility] MCH 29.6 27.0 - 31.0 pg [facility] MCHC 31.9(L) 32.0 - 36.0 g/dL [facility] RDW 13.0 11.5 - 14.5 % [facility] MPV 9.5 8.4 - 12.0 [facility] NRBC 0.00 0.00 /100 WBCs [facility] ABSOLUTE NRBC 0.00 0.00 K/uL [facility] Blood 04/23/2025 7:52 AM EDT 04/23/2025 7:59 AM EDT us Clem Moore MD LAB BLOOD BKR ORDERABLES Final Result Performing Organization Address City/[facility]/ZIP Co de Phone Number [address] [phone] * (ABNORMAL) Basic metabolic panel (04/23/2025 7:52 AM EDT) SODIUM 138 133 - 146 mmol/L [facility] CHLORIDE 105 96 - 108 mmol/L [facility] POTASSIUM 5.0 3.3 - 5.1 mmol/L [facility] CO2 26 21 - 35 mmol/L [facility] BUN 16 6 - 19 mg/dL [facility] CREATININE 0.90 0.5 - 1.5 mg/dL [facility] GLUCOSE 105(H) 70 - 99 mg/dL [facility] CALCIUM 9.9 8.4 - 10.3 mg/dL [facility] EGFR 92 >59 mL/min/1.7 3m2 [facility] Comment:Estimated glomerular filtration rate calculated using the CKD-EPI refit equation. ANION GAP 12 10 - 20 mmol/L [facility] Blood 04/23/2025 7:52 AM EDT 04/23/2025 7:59 AM EDT Clem Moore MD LAB BLOOD BKR ORDERABLES Final Result [address] [address] * Anatomic Pathology (04/23/2025 12:00 AM EDT) 04/23/2025 04/23/2025 10: 41 AM EDT Narrative SEE NARRATIVE - 04/24/2025 2:51 PM EDT [address] [address] Rail Project Engineer: Jr Bustos MD Surgical Pathology Report FINAL PATHOLOGIC DIAGNOSIS: RIGHT POSTERIOR BLADDER BIOPSY: Benign urothelium with reactive changes. Electronically Signed Out By Margarita Watts MD By his/her signature above, the pathologist listed as making the Final Diagnosis certifies that he/she has personally reviewed this case and confirmed or corrected the diagnosis. CLINICAL HISTORY History of bladder cancer, anxiety SPECIMENS SUBMITTED: A: RIGHT POSTERIOR BLADDER BIOPSY GROSS DESCRIPTION RIGHT POSTERIOR BLADDER BIOPSY: Received in formalin are 3 irregular gifford-pink soft tissue fragments varying in size from 0.1 x 0.1 x 0.1 cm up to 0.3 x 0.3 x 0.2 cm which are submitted in toto in a single cassette labeled A1. Grossed by: JUNI Martinez, ADINA(ASCP) [id number] 04/23/2025 Grossing Staff: [id number] Patient Name: JOSESITO DAWKINS : 1955 (Age: 69) Sex: M Institution: [facility] Location: [facility] Date of Operation: 04/23/2025 Date of Reported: 04/24/2025 14:51 Results To: MD Yaw Neff MD us Clem Moore MD LAB PATHOLOGY ORDERABLES Final Result Performing Organization Address City/[facility] Co de Phone Number SEE NARRATIVE * (ABNORMAL) Lipid panel (11/11/2021 7:46 AM EDT) HDL 38 mg/dL [facility] Comment: Interpretation <40 mg/dL: Low HDL cholesterol (major risk factor for CHD) Greater than or equal to 60 mg/dL: High HDL cholesterol ( negative risk factor for CHD) HDL - cholesterol is affected by a number of factors, e.g. smoking, excerise, hormones, sex and age. CHOLESTEROL 185 0 - 240 mg/dL [facility] TRIGLYCERIDES 161(H) 30 - 160 mg/dL [facility] LDL 115 50 - 129 mg/dL [facility] Comment: LDL levels in terms of risk for coronary heart disease: <100 mg/dL: Optimal 100-129 mg/dL: Near or above optimal 130-159 mg/dL: Borderline high 160-189 mg/dL: High >190 mg/dL: Very High CARDIAC RISK RATIO 4.9 3.4 - 5.0 [facility] 11/11/2021 7:46 AM EDT 11/13/2021 3:24 PM EDT us Yaw Coronado MD LAB BLOOD BKR ORDERABLES Final Result Performing Organization Address City/[facility] Co de Phone Number [address] [address] * Fecal occult blood, multiple (02/18/2018 3:59 PM EDT) FECAL OCC BLD 1 DATE 82,418 [facility] Occult bld, stool, #1 Negative Negative [facility] FECAL OCC BLD 2 [address] [facility] OCCULT BLD, STOOL, #2 Negative Negative [facility] FECAL OCC BLD 3 DATE 82,418 [facility] FECAL OCC BLD 3 RSLT Negative Negative [facility] Stool (Stool) 02/18/2018 3:5 9 PM EDT 02/18/2018 4:05 PM EDT Dayana Morales PA-C BODY FLUIDS AND STOOLS ORDERABL ES Final Result Performing Organization Address [facility] Co de Phone Number [address] [address] from Last 3 Months or Most Recently Relevant to Health Maintenance Insurance MEDICARE PPO BLUE REPLACEMENT MEDICARE PPO BLUE REPLACEMENT MEDICARE PPO BLUE REPLACEMENT MEDICARE PPO BLUE REPLACEMENT MEDICARE PPO BLUE REPLACEMENT MEDICARE PPO BLUE REPLACEMENT MEDICARE PPO BLUE REPLAC[place] BLUE REPLACEMENT Care Teams Sanding Machine Operator Relationship Specialty Start Date End Date Yaw Coronado MD [address] [place] [address] PCP - General Internal Medicine 11/17/17 Additional Source Comments The information contained in this document represents components of the legal health record. It is not the complete legal health record.[facility]
--- OUTSIDE RECORDS SUMMARY | 2025-05-30 11:45 | XMS_ITS | Encounter Summary ---
Author Organization [facility] Address [address] [place] [address] Phone Care Team Providers Care Regulatory Assistant Name Role Phone Ywa Coronado MD Primary Care Provider + Encounter Details Date Type Department Care Team ([facility] st Contact Info) Description 04/23/2025 Procedure Pass OR Admitting Dept - Virtual Department [address] [place] [address] Social History Tobacco Use Types Packs/Day Years [...] on file documented as of this encounter Visit Diagnoses Not on filedocumented in this encounter Care Teams Regulatory Assistant Relationship Specialty Start Date End Date Yaw Coronado MD [address] [facility][1] [address] [place] [address] PCP - General Internal Medicine 11/17/17 documented as of this encounter Additional Source Comments The information contained in this document represents components of the legal health record. It is not the complete legal health record.[facility]
--- OUTSIDE RECORDS SUMMARY | 2025-05-30 11:45 | XMS_ITS | Encounter Summary ---
Author Organization [facility] Address [address] [facility] [address] [place] [address] Phone Care Team Providers Care Steam And Gas Turbine Assembler Name Role Phone Yaw Coronado MD Primary Care Provider + Encounter Details Date Type Department Care Team (Latest Contact Info) Description 02/10/2018 Transcribe Orders [facility] [address] [place] [address] Dayana Morales PA-C [address] [place] [address] [email or web address] Constipation, unspecified constipation type (Primary Dx) Social [...] on file documented as of this encounter Results * H. pylori antigen, stool (02/18/2018 3:59 PM EDT) Pathologist [facility].PYLORI AG Negative Negative [facility] DPT OF LAB MED AND PAT+ Stool (Stool) 02/18/2018 3:5 9 PM EDT 02/18/2018 4:05 PM EDT Dayana Morales PA-C LAB BODY FLUIDS AND STOOL ORDER SHAWANDA Final Result Performing Organization Address City/[facility]/ZIP Co de Phone Number [facility] DPT OF LAB MED AND PAT+ [address] [place] [address] * Fecal occult blood, multiple (02/18/2018 3:59 PM EDT) FECAL OCC BLD 1 DATE [address] [facility] Occult bld, stool, #1 Negative Negative [facility] FECAL OCC BLD 2 82 [facility] OCCULT BLD, STOOL, #2 Negative Negative [facility] FECAL OCC BLD 3 [facility] FECAL OCC BLD 3 RSLT Negative Negative [facility] Stool (Stool) 02/18/2018 3:5 9 PM EDT 02/18/2018 4:05 PM EDT us Dayana Morales PA-C BODY FLUIDS AND STOOLS ORDERABL ES Final Result Performing Organization Address [facility] Co de Phone Number [address] [address] * TSH (02/10/2018 9:31 AM EDT) TSH 1.34 0.27 - 4.20 uIU/mL [facility] Blood 02/10/2018 9:31 AM EDT 02/10/2018 9:38 AM EDT us Dayana Morales PA-C LAB BLOOD BKR ORDERABLES Final Result Performing Organization Address [facility] Co de Phone Number [address] [address] * Immunoglobulin A (02/10/2018 9:31 AM EDT) IgA 177 70 - 400 mg/dL [facility] Blood 02/10/2018 9:31 AM EDT 02/10/2018 9:38 AM EDT us Dayana Morales PA-C LAB BLOOD BKR ORDERABLES Final Result [facility] [address] [place] [address] * Tissue transglutaminase IgA (02/10/2018 9:31 AM EDT) TTG IGA ANTIBODY <1.2 <4.0 (Negative) U/mL [facility] DPT OF LAB MED AND PAT+ Blood 02/10/2018 9:31 AM EDT 02/10/2018 9:38 AM EDT us Dayana Morales PA-C LAB BLOOD BKR ORDERABLES Final Result [facility] DPT OF LAB MED AND PAT+ [address] [place] [address] documented in this encounter Visit Diagnoses Diagnosis Constipation, unspecified constipation type- Primary documented in this encounter Additional Health Concerns Infection Onset Date Last Indicated Resolved Time CoV-Risk 10/28/2019 10/28/2019 11/11/2019 1:24 AM EDT documented as of this encounter Care Teams Steam And Gas Turbine Assembler Relationship Specialty Start Date End Date Yaw Corondao MD [address] [place] [address] PCP - General Internal Medicine 11/17/17 documented as of this encounter Additional Source Comments The information contained in this document represents components of the legal health record. It is not the complete legal health record.[facility]
--- OUTSIDE RECORDS SUMMARY | 2025-05-30 11:45 | XMS_ITS | Encounter Summary ---
Author Organization [facility] Address [address] [place] [address] Care Team Providers Care Syrup Blender Name Role Phone Yaw Coronado MD Primary Care Provider Encounter Details Date Type Department Care Team (Late st Contact Info) Description 06/02/2024 Lab Requisition [facility] - Main Lab [address] [place] [address] Marko Nash [place] [address] [facility] [address] [place] [address] Urgency of urination Social History Tobacco Use [...] Urine No growth 06/03/2024 11:13 AM EST [facility] Urine Urine specimen obtained by clean catch procedure / Unknown 06/02/2024 11:34 AM EST 06/02/2024 2:16 PM EST us Marko HOLDEN LAB MICROBIOLOGY - GENERAL ORDER SHAWANDA Final Result [facility] [address] [place] [address], documented in this encounter Visit Diagnoses Diagnosis Urgency of urination documented in this encounter Care Teams Syrup Blender Relationship Specialty Start Date End Date Yaw Coronado MD [address] [place] [address] PCP - General Internal Medicine 10/05/19 documented as of this encounter
--- OUTSIDE RECORDS SUMMARY | 2025-05-30 11:45 | XMS_ITS | Encounter Summary ---
Author Organization [facility] Address [address] [place] [address] Phone Care Team Providers Care Mastic Worker Name Role Phone Yaw Coronado MD Primary Care Provider + Encounter Details Date Type Department Care Team ([facility] st Contact Info) Description 02/13/2020 Procedure Pass OR Admitting Dept - Virtual Department [address] [place] [address] Social History Tobacco Use Types Packs/Day Years [...] on filedocumented in this encounter Care Teams Mastic Worker Relationship Specialty Start Date End Date Yaw Coronado MD [address] [place] [address] PCP - General Internal Medicine 11/17/17 documented as of this encounter Additional Source Comments The information contained in this document represents components of the legal health record. It is not the complete legal health record.[facility]
--- OUTSIDE RECORDS SUMMARY | 2025-05-30 11:45 | XMS_ITS | Encounter Summary ---
Author Organization [facility] Address [address] [place] [address] Phone Care Team Providers Care Transport Aircrewman Name Role Phone Yaw Coronado MD Primary Care Provider + Encounter Details Date Type Department Care Team ([facility] st Contact Info) Description 10/31/2019 Procedure Pass OR Admitting Dept - Virtual Department [address] [place] [address] Social History Tobacco Use Types Packs/Day Years [...] documented as of this encounter Care Teams Transport Aircrewman Relationship Specialty Start Date End Date Yaw Coronado MD [address] [place] [address] [address] [place] [address] PCP - General Internal Medicine 11/17/17 documented as of this encounter Additional Source Comments The information contained in this document represents components of the legal health record. It is not the complete legal health record.[facility]
--- OUTSIDE RECORDS SUMMARY | 2025-05-30 11:46 | XMS_ITS | Encounter Summary ---
Author Organization [facility] Address [address] [place] [address] Phone Care Team Providers Care Immigration Patrol Inspector Name Role Phone Yaw Coronado MD Primary Care Provider + Encounter Details Date Type Department Care Team ([facility] st Contact Info) Description 10/07/2020 Procedure Pass OR Admitting Dept - Virtual Department [address] [place] [address] Social History Tobacco Use Types Packs/Day Years [...] on filedocumented in this encounter Care Teams Immigration Patrol Inspector Relationship Specialty Start Date End Date Yaw Coronado MD [address] [place] [address] PCP - General Internal Medicine 11/17/17 documented as of this encounter Additional Source Comments The information contained in this document represents components of the legal health record. It is not the complete legal health record.[facility]
--- OUTSIDE RECORDS SUMMARY | 2025-05-30 11:46 | XMS_ITS | Encounter Summary ---
Author Organization [facility] Address [address] [place] [address] Phone Care Team Providers Care Radiology Services Manager Name Role Phone Yaw Coronado MD Primary Care Provider + Encounter Details Date Type Department Care Team ([facility] st Contact Info) Description 05/14/2020 Procedure Pass OR Admitting Dept - Virtual Department [address] [place] [address] Social History Tobacco Use Types Packs/Day Years [...] on filedocumented in this encounter Care Teams Radiology Services Manager Relationship Specialty Start Date End Date Yaw Coronado MD [address] [place] [address] PCP - General Internal Medicine 11/17/17 documented as of this encounter Additional Source Comments The information contained in this document represents components of the legal health record. It is not the complete legal health record.[facility]
--- OUTSIDE RECORDS SUMMARY | 2025-05-30 11:46 | XMS_ITS | Encounter Summary ---
Author Organization [facility] Address [address] [place] [address] Phone Care Team Providers Care Chief Maintenance Supervisor Name Role Phone Yaw Coronado MD Primary Care Provider + Encounter Details Date Type Department Care Team ([facility] st Contact Info) Description 11/11/2021 Procedure Pass OR Admitting Dept - Virtual Department [address] [place] [address] Social History Tobacco Use Types Packs/Day Years [...] on filedocumented in this encounter Care Teams Chief Maintenance Supervisor Relationship Specialty Start Date End Date Yaw Coronado MD [address] [place] [address] PCP - General Internal Medicine 11/17/17 documented as of this encounter Additional Source Comments The information contained in this document represents components of the legal health record. It is not the complete legal health record.[facility]
--- OUTSIDE RECORDS SUMMARY | 2025-05-30 11:46 | XMS_ITS | Encounter Summary ---
Author Organization [facility] Address [address] [place] [address] Phone Care Team Providers Care Bonding Machine Operator Name Role Phone Yaw Coronado MD Primary Care Provider + Encounter Details Date Type Department Care Team ([facility] st Contact Info) Description 09/26/2019 Procedure Pass OR Admitting Dept - Virtual Department [address] [place] [address] Social History Tobacco Use Types Packs/Day Years [...] documented as of this encounter Care Teams Bonding Machine Operator Relationship Specialty Start Date End Date Yaw Coronado MD [address] [place] [address] [address] [place] [address] PCP - General Internal Medicine 11/17/17 documented as of this encounter Additional Source Comments The information contained in this document represents components of the legal health record. It is not the complete legal health record.[facility]
--- OUTSIDE RECORDS SUMMARY | 2025-05-30 11:46 | XMS_ITS | Encounter Summary ---
Author Organization [facility] Address [address] [facility] [address] [place] [address] Phone Care Team Providers Care Art History Professor Name Role Phone Yaw Coronado MD Primary Care Provider + Reason for Referral * MRI/CAT Scan - Closed Specialty Diagnoses / Procedures Referred By Contac t Referred To Contact Procedures NM PET Whole Body Outside (No Interpretation) System, Provider [place] In, [place] [address] Referral ID Status Reason Start Date Expiration Date Visits Re quested Visits Authorized [id number] Closed 02/07/2018 02/07/2019 1 1 Encounter Details Date Type Department Care Team (Late st Contact Info) Description 02/07/2018 Ancillary Orders [facility],Outside Imaging [address] [place] [address] System, Provider Not In, [facility] [address] [address] Social History Tobacco Use Types Packs/Day Years [...] as of this encounter Care Teams Art History Professor Relationship Specialty Start Date End Date Yaw Coronado MD [address] [place] [address] PCP - General Internal Medicine 11/17/17 documented as of this encounter Additional Source Comments The information contained in this document represents components of the legal health record. It is not the complete legal health record.[facility]
--- OUTSIDE RECORDS SUMMARY | 2025-05-30 11:46 | XMS_ITS | Encounter Summary ---
Author Organization [facility] Address [address] [facility] [address] [place] [address] Phone Care Team Providers Care Sales Associate Key Holder Name Role Phone Yaw Coronado MD Primary Care Provider + Encounter Details Date Type Department Care Team (Latest Contact Info) Description 04/19/2020 Transcribe Orders [facility] Phleb Main [address] [place] [address] Clem Moore MD [address] [place] [address], [address] [place] [address] [email or web address] Personal history of malignant neoplasm of prostate [...] EDT) PSA <0.05 0 - 4.00 ng/mL [facility] Blood 04/19/2020 12:1 0 PM EDT 04/19/2020 12:14 PM EDT us Clem Moore MD LAB BLOOD BKR ORDERABLES Final Result [facility] [address] [place] [address] documented in this encounter Visit Diagnoses Diagnosis Personal history of malignant neoplasm of prostate- Primary documented in this encounter Care Teams Sales Associate Key Holder Relationship Specialty Start Date End Date Yaw Coronado MD [address] [place] [address] PCP - General Internal Medicine 11/17/17 documented as of this encounter Additional Source Comments The information contained in this document represents components of the legal health record. It is not the complete legal health record.[facility]
--- OUTSIDE RECORDS SUMMARY | 2025-05-30 11:46 | XMS_ITS | Clinical Summary ---
Author Organization [address] [facility] Address [address] [place] [address] Phone Care Team Providers Care Esthetic Dermatologist Name Role Phone Yaw Coronado MD Primary [...] Depression Screening 06/28/2024 COVID-19 Vaccine ( - 2024-2 6 season) 2025 Influenza Vaccine (#1) 2025 RSV [...] topic Insurance [facility] Care Teams Esthetic Dermatologist Relationship Specialty Start Date End Date Yaw Coronado MD [address] [place] [address] PCP - General Internal Medicine 10/05/19
--- OUTSIDE RECORDS SUMMARY | 2025-05-30 11:46 | XMS_ITS | Encounter Summary ---
Author Organization [facility] Address [address] [place] [address] [place] [address] Phone Care Team Providers Care Anode Crew Supervisor Name Role Phone Yaw Coronado MD Primary Care Provider + Reason for Referral * - Closed Specialty Diagnoses / Procedures Referred By Agustin lees Referred To Contact Diagnoses Rising PSA following treatment for malignant neoplasm of prostate Procedures CT Pelvis Clem Moore MD Phone: tel: fax: [email or web address] Referral ID Status Reason Start Date Expiration Date Visits Re quested Visits Authorized [id number] Closed 11/25/2017 11/25/2018 1 1 Encounter Details Date Type Department Care Team (Late st Contact Info) Description 11/17/2017 Ancillary Orders [facility] Department [address] [place] [address] Clem Moore MD [address] [place] [address], [address] [address] [email or web address] PSA following treatment for malignant neoplasm [...] 11/29/2017 5:44 PM us Clem Moore MD IMG NM BONE SCAN Final Result * CT [...] documented as of this encounter Care Teams Anode Crew Supervisor Relationship Specialty Start Date End Date Yaw Coronado MD [address] [address] PCP - General Internal Medicine 11/17/17 documented as of this encounter Additional Source Comments The information contained in this document represents components of the legal health record. It is not the complete legal health record.[facility]
--- OUTSIDE RECORDS SUMMARY | 2025-05-30 11:46 | XMS_ITS | Encounter Summary ---
Author Organization [facility] Address [address] [facility] [address] [place] [address] Phone Care Team Providers Care Fruit Cutter Name Role Phone Yaw Coronado MD Primary Care Provider + Encounter Details Date Type Department Care Team (Late st Contact Info) Description 07/10/2024 Procedure Pass OR Admitting Dept - Virtual Department 30 [place] [address] Social History Tobacco Use Types Packs/Day Years [...] Author No Risk Indicated 07/10/2024 6:50 AM Cami Yusuf, RN * [place] Suicide Severity Rating Scale (Screener/Recent Self-Report) Question Answer Date of Assessment Author 2. Non-Specific Active Suici roshni Thoughts (Past 1 Month) No 07/10/2024 6:50 AM Nguyen Ibrahim RN documented as of this encounter Plan of Treatment Not on file documented as of this encounter Visit Diagnoses Not on filedocumented in this encounter Care Teams Fruit Cutter Relationship Specialty Start Date End Date Yaw Coronado MD [address] [address] PCP - General Internal Medicine 11/17/17 documented as of this encounter Additional Source Comments The information contained in this document represents components of the legal health record. It is not the complete legal health record.[facility]
--- OUTSIDE RECORDS SUMMARY | 2025-05-30 11:46 | XMS_ITS | Encounter Summary ---
Author Organization [facility] Address [address] [place] [address] Phone Care Team Providers Care Die Cast Operator Name Role Phone Yaw Coronado MD Primary Care Provider + Encounter Details Date Type Department Care Team ([facility] st Contact Info) Description 06/08/2022 Procedure Pass [place] Admitting Dept - Virtual Department [address] [place] [address] Social History Tobacco Use Types Packs/Day Years [...] on filedocumented in this encounter Care Teams Die Cast Operator Relationship Specialty Start Date End Date Yaw Coronado MD [address] [place] [address] PCP - General Internal Medicine 11/17/17 documented as of this encounter Additional Source Comments The information contained in this document represents components of the legal health record. It is not the complete legal health record.[facility]
--- OUTSIDE RECORDS SUMMARY | 2025-05-30 11:46 | XMS_ITS | Encounter Summary ---
Author Organization [facility] Address [address] [facility] [address] [place] [address] Phone Care Team Providers Care Deputy Controller Name Role Phone Yaw Coronado MD Primary Care Provider + Encounter Details Date Type Department Care Team (Latest Contact Info) Description 11/24/2017 Transcribe Orders [facility] Phleb Main [address] [place] [address] Clem Moore MD [facility] [facility], [address] [place] [address] [email or web address] Rising PSA following treatment for malignant neoplasm [...] EDT) CREATININE 1.00 0.5 - 1.5 mg/dL [facility] EGFR 80 >59 mL/min/1.7 3m2 [facility] Comment:If patient is black, multiply result by 1.159. The eGFR calculation has changed from the MDRD equation to the CKD-EPI equation as of August 31, 2017. Blood 11/24/2017 3:36 PM EDT 11/24/2017 3:40 PM EDT Clem Moore MD LAB BLOOD BKR ORDERABLES Final Result [address] [address] * (ABNORMAL) BUN (11/24/2017 3:36 PM EDT) BUN 20(H) 6 - 19 mg/dL [facility] Blood 11/24/2017 3:36 PM EDT 11/24/2017 3:40 PM EDT Clem Moore MD LAB BLOOD BKR ORDERABLES Final Result Performing Organization Address [facility]/ZIP Co de Phone Number [address] [address] * PSA (screening) (11/24/2017 3:36 PM EDT) PSA 0.23 0 - 4.00 ng/mL [facility] Blood 11/24/2017 3:36 PM EDT 11/24/2017 3:40 PM EDT Clem Moore MD LAB BLOOD BKR ORDERABLES Final Result Performing Organization Address [facility] Co de Phone Number [address] [address] documented in this encounter Visit Diagnoses Diagnosis Rising PSA following treatment for malignant neoplasm of prostate- Primary documented in this encounter Additional Health Concerns Infection Onset Date Last Indicated Resolved Time CoV-Risk 10/28/2019 10/28/2019 11/11/2019 1:24 AM EDT documented as of this encounter Care Teams Deputy Controller Relationship Specialty Start Date End Date Yaw Coronado MD [address] [place] [address] PCP - General Internal Medicine 11/17/17 documented as of this encounter Additional Source Comments The information contained in this document represents components of the legal health record. It is not the complete legal health record.[facility]
--- OUTSIDE RECORDS SUMMARY | 2025-05-30 11:46 | XMS_ITS | Encounter Summary ---
Author Organization [facility] Address [address] [facility] [address] [place] [address] Phone Care Team Providers Care Informatics Coordinator Name Role Phone Yaw Coronado MD Primary Care Provider + Encounter Details Date Type Department Care Team ([facility] st Contact Info) Description 12/01/2022 Procedure Pass [place] Admitting Dept - Virtual Department [address] [place] [address] Social History Tobacco Use Types Packs/Day Years [...] on filedocumented in this encounter Care Teams Informatics Coordinator Relationship Specialty Start Date End Date Yaw Coronado MD [address] [place] [address] PCP - General Internal Medicine 11/17/17 documented as of this encounter Additional Source Comments The information contained in this document represents components of the legal health record. It is not the complete legal health record.[facility]
--- OUTSIDE RECORDS SUMMARY | 2025-05-30 11:46 | XMS_ITS | Encounter Summary ---
Author Organization [facility] Address [address] [facility] [address] [place] [address] Phone Care Team Providers Care Tank Pumper Name Role Phone Yaw Coronado MD Primary Care Provider + Encounter Details Date Type Department Care Team ([facility] st Contact Info) Description 10/09/2024 Procedure Pass [place] Admitting Dept - Virtual Department [address] [place] [address] Social History Tobacco Use Types Packs/Day Years [...] on filedocumented in this encounter Care Teams Tank Pumper Relationship Specialty Start Date End Date Yaw Coronado MD [address] [place] [address] PCP - General Internal Medicine 11/17/17 documented as of this encounter Additional Source Comments The information contained in this document represents components of the legal health record. It is not the complete legal health record.[facility]
--- OUTSIDE RECORDS SUMMARY | 2025-05-30 11:46 | XMS_ITS | Encounter Summary ---
Author Organization [facility] Address [address] [facility] [address] [place] [address] Phone Care Team Providers Care Stepdown Nurse Name Role Phone Yaw Coronado MD Primary Care Provider + Encounter Details Date Type Department Care Team ([place] [facility] st Contact Info) Description 11/17/2017 Procedure Pass [facility], Ct Scan - [address] [address] Social History Tobacco Use Types Packs/Day Years [...] documented as of this encounter Care Teams Stepdown Nurse Relationship Specialty Start Date End Date Yaw Coronado MD [address] [place] [address] PCP - General Internal Medicine 11/17/17 documented as of this encounter Additional Source Comments The information contained in this document represents components of the legal health record. It is not the complete legal health record.[facility]
--- OUTSIDE RECORDS SUMMARY | 2025-05-30 11:46 | XMS_ITS | Encounter Summary ---
Author Organization [facility] [place] [facility] Address [address] [facility] [address] [place] [address] Phone Care Team Providers Care Trial Paralegal Name Role Phone Yaw Coronado MD Primary Care Provider + Encounter Details Date Type Department Care Team (Latest Contact Info) Description 11/13/2021 Transcribe Orders [facility] Specimen Processing [address] [place] [address] Yaw Coronado MD [address] [place] [address] Malignant neoplasm of prostate (Primary Dx); Malignant [...] B12 (11/13/2021 2:49 PM EDT) CONTACT INFORMATION [phone] [facility] TEST REQUESTED A1C, DIRECT LDL,LIPID PANEL,MAGNESI UM LEVEL, VITAMIN B12 [facility] Comments (Chemistry) Add on order being processed. Floor or provider will be notified if testing cannot be performed [facility] 11/13/2021 2:49 PM EDT 11/13/2021 3:26 PM EDT us Yaw Coronado MD LAB BLOOD ORDERABLES Fin al Result [address] [address] * (ABNORMAL) Lipid panel (11/11/2021 7:46 AM EDT) HDL 38 mg/dL [facility] Comment: Interpretation <40 mg/dL: Low HDL cholesterol (major risk factor for CHD) Greater than or equal to 60 mg/dL: High HDL cholesterol ( negative risk factor for CHD) HDL - cholesterol is affected by a number of factors, e.g. smoking, excerise, hormones, sex and age. CHOLESTEROL 185 0 - 240 mg/dL [facility] TRIGLYCERIDES 161(H) 30 - 160 mg/dL [facility] LDL 115 50 - 129 mg/dL [facility] Comment: LDL levels in terms of risk for coronary heart disease: <100 mg/dL: Optimal 100-129 mg/dL: Near or above optimal 130-159 mg/dL: Borderline high 160-189 mg/dL: High >190 mg/dL: Very High CARDIAC RISK RATIO 4.9 3.4 - 5.0 [facility] 11/11/2021 7:46 AM EDT 11/13/2021 3:24 PM EDT us Yaw Coronado MD LAB BLOOD BKR ORDERABLES Final Result [address] [address] documented in this encounter Visit Diagnoses Diagnosis Malignant neoplasm of prostate- Primary Malignant neoplasm of bladder wall Malignant neoplasm of bladder, part unspecified Pulmonary emphysema, unspecified emphysema type Lung mass Swelling, mass, or lump in chest documented in this encounter Care Teams Trial Paralegal Relationship Specialty Start Date End Date Yaw Coronado MD [address] [address] PCP - General Internal Medicine 11/17/17 documented as of this encounter Additional Source Comments The information contained in this document represents components of the legal health record. It is not the complete legal health record.[facility] [place] [facility]
--- OUTSIDE RECORDS SUMMARY | 2025-05-30 11:46 | XMS_ITS | Encounter Summary ---
Author Organization [facility] Address [address] [facility] [address] [place] [address] Phone Care Team Providers Care Supervising Law Enforcement Analyst Name Role Phone Ywa Coronado MD Primary Care Provider + Encounter Details Date Type Department Care Team ([facility] st Contact Info) Description 06/01/2023 Procedure Pass OR Admitting Dept - Virtual Department [address] [place] [address] Social History Tobacco Use Types Packs/Day Years [...] on filedocumented in this encounter Care Teams Supervising Law Enforcement Analyst Relationship Specialty Start Date End Date Yaw Coronado MD [address] [place] [address] PCP - General Internal Medicine 11/17/17 documented as of this encounter Additional Source Comments The information contained in this document represents components of the legal health record. It is not the complete legal health record.[facility]
== END 2025-05-30 11:02 | disposition home or self-care (01) ==
LOC: HO.HMCFM 10:17
PROVIDERS: PCP Physician Assistant; Visit Provider Physician Assistant
DX: E78.5 Hyperlipidemia, unspecified (principal); E87.5 Hyperkalemia; C67.9 Malignant neoplasm of bladder, unspecified; K59.09 Other constipation; K86.2 Cyst of pancreas; E27.8 Other specified disorders of adrenal gland; R06.09 Other forms of dyspnea; R00.1 Bradycardia, unspecified; R94.31 Abnormal electrocardiogram [ECG] [EKG]